=== PATIENT | male | born 1950 | race American Indian/Alaskan Native ===

== ENCOUNTER 2016-04-10 12:40 | Outpatient (CLI) | payer MEDICARE ==
--- NOTE | 2016-04-11 08:55 | Ultrasound Report ---
ULTRASOUND ABDOMEN LIMITED INDICATION: Nausea, abdominal pain. COMPARISON: 03/22/2013 ultrasound and 09/24/2013 CT. FINDINGS: Right upper quadrant sonography demonstrates diffusely echogenic liver with grossly preserved contours. No definite focal suspicious lesions or biliary dilatation. No gallstones or pericholecystic fluid. Gallbladder wall thickness is 1.9 mm. Common bile duct is 3.5 mm. Pancreas not well-visualized, obscured due to bowel gas. Nonaneurysmal abdominal aorta, IVC and the right kidney appear within normal limits. CONCLUSION: No acute right upper quadrant sonographic abnormality, though liver again moderately echogenic sonographically without definite prior CT confirmation of fatty infiltration. Please also correlate clinically. Thank you for the opportunity to participate in this patient's care.
== END 2016-04-10 12:41 | disposition home or self-care (01) ==
LOC: US 12:40
PROVIDERS: ATTEND Internal Medicine Hematology & Oncology
DX: R10.9 Unspecified abdominal pain (principal); R11.0 Nausea
CPT/HCPCS: 76705

== ENCOUNTER 2016-05-06 16:30 | Observation (INO) | payer MEDICARE ==
--- NOTE | 2016-05-06 17:01 | Emergency Department Report ---
Chief Complaint: Chest Pain Stated Complaint: CHEST PAIN Time Seen by Provider: 05/06/16 16:59 - HPI History of Present Illness: 65 y/o male complain of chest pain intermittent x 4 days .pt complain of n/v .pt denies any shortness of breath at present. - Exam Vital Signs: Vital Signs 05/06/16 16:38 Temperature 98.1 F Pulse Rate 106 H Respiratory 19 Rate Blood Pressure 143/88 O2 Sat by Pulse 99 Oximetry Physical Exam: GENERAL: The patient is well-developed and well-nourished. Patient is in NAD. HENT: Normocephalic. Atraumatic. Patient has moist mucous membranes. Throat: No erythema, swelling or exudates. Ears:Tympanic membranes pearly yu ,intact , and free of exudate and erythema . EYES: Extraocular motions are intact, PERRL NECK: Supple. No meningitic signs are noted. There is no adenopathy noted. CHEST/LUNGS: Clear to auscultation bilaterally. No wheezing, rales or rhonchi noted. There is no respiratory distress noted. HEART/CARDIOVASCULAR: Regular rate and rhythm. Normal S1 S2. No murmurs, rubs , clicks, or gallops. ABDOMEN: Abdomen is soft, nontender.. Bowel sounds normoactive. There is no abdominal distention. Negative rebound tenderness. : Deferred. SKIN: There is no rash. There is no edema. There is no diaphoresis.Normal skin turgor NEURO: The patient is A&Ox3. The patient has no focal neurologic deficits. MUSCULOSKELETAL: There is no tenderness or deformity. There is no limitation range of motion. posture erect.Spine aligned,no deformities. PSYCH: Pt has appropriate mood and affect. MSE screening note: Focused history and physical exam performed. Due to findings the following was ordered: ED Disposition for MSE Condition: Stable
[2016-05-06 17:22] LABS: Basophils % (Auto) 0.6 % (0.0-1.8); Eosinophils % (Auto) 1.1 % (0.0-4.3); Hematocrit 45.2 % (35.5-45.6); Hemoglobin 14.8 gm/dl (11.8-15.2); Mean Corpuscular HGB Conc 33 % (32-34); Mean Corpuscular Hemoglobin 30 pg (28-32); Mean Corpuscular Volume 90 fl (84-94); Platelet Count 147 K/mm3 (140-440); Red Blood Count 5.01 M/mm3 (3.65-5.03); Red Cell Distribution Width 13.8 % (13.2-15.2); White Blood Count 6.1 K/mm3 (4.5-11.0)
[2016-05-06 17:43] LABS: Creatine Kinase MB 2.7 ng/mL (0.0-4.0)
[2016-05-06 17:44] LABS: INR 2.35 (0.87-1.13)
[2016-05-06 17:45] LABS: Partial Thromboplastin Time 35.5 Sec. (24.2-36.6)
[2016-05-06 17:46] LABS: Alanine Aminotransferase 17 units/L (7-56); Albumin 4.8 g/dL (3.9-5); Albumin/Globulin Ratio 1.5 %; Alkaline Phosphatase 78 units/L (35-129); Anion Gap 18 mmol/L; BUN/Creatinine Ratio 13.75; Bilirubin,Total 0.7 mg/dL (0.1-1.2); Blood Urea Nitrogen 11 mg/dL (9-20); Calcium 9.4 mg/dL (8.4-10.2); Carbon Dioxide 28 mmol/L (22-30); Chloride 98.1 mmol/L (98-107); Glucose 207 mg/dL (75-100); Potassium 4.5 mmol/L (3.6-5.0); Sodium 140 mmol/L (137-145); Total Protein 7.9 g/dL (6.3-8.2)
--- NOTE | 2016-05-06 23:43 | Emergency Department Report ---
ED Chest Pain HPI - General Chief Complaint: Chest Pain Stated Complaint: CHEST PAIN Time Seen by Provider: 05/06/16 23:16 Source: patient Mode of arrival: Ambulatory Limitations: No Limitations - History of Present Illness Initial Comments: This is a 65-year-old -[place] male who presents to the emergency department from home with complaint of left-sided chest pain that's been going on for the last 4-5 days intermittently. He says that it got to its worst point last night when it was 10 out of 10 in intensity and the patient could not get any sleep. It is now 5 out of 10 and improving without any intervention. Patient is also been dealing with nausea and vomiting since this began and has vomited 3 times today. He denies any shortness of breath, fever, back pain but does complain of occasional diaphoresis. No recent travel or sick contacts at home. Patient has a past medical history of lymphoma that is in remission, PE/DVT, pun-osmvkda-hsvunnvlh diabetes, GERD, hypertension and high cholesterol. Patient is currently on Coumadin and has been compliant with it. His primary care doctor is Dr. Espana. 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 He last had a stress test about 10-12 years ago. He denies tobacco abuse any illicit drug use or abuse. Severity scale (0 -10): 6 - Related Data Home Medications Medication Instructions Recorded Confirmed Last Taken Clonidine HCl 0.2 mg PO BID 03/22/13 01/23/16 01/23/16 Gabapentin 300 mg PO BID 03/22/13 01/23/16 01/23/16 Lisinopril 20 mg PO QDAY 03/22/13 01/23/16 01/23/16 Metformin HCl 500 mg PO BID 03/22/13 01/23/16 01/23/16 Simvastatin 40 mg PO QDAY 03/22/13 01/23/16 01/22/16 Warfarin Sodium [Warfarin Sodium] 5 mg PO QDAY 01/23/16 01/23/16 01/22/16 Allergies Allergy/AdvReac Type Severity Reaction Status Date / Time codeine Allergy hallucinati Verified 05/06/16 16:50 ons oxycodone Allergy hallucinati Verified 05/06/16 16:50 ons ZEE score - Zee Score Age > 65: (0) No Aspirin use within the Past 7 Days: (0) No 3 or more CAD Risk Factors: (1) Yes 2 or more Angina events in past 24 hrs: (1) Yes Known CAD with more than 50% Stenosis: (0) No Elevated Cardiac Markers: (0) No ST Deviation Greater than 0.5mm: (0) No ZEE Score: 2 ED Review of Systems ROS: Stated complaint: CHEST PAIN Other details as noted in HPI Comment: All other systems reviewed and negative Constitutional: diaphoresis. denies: chills, fever Eyes: denies: eye pain, eye discharge, vision change ENT: denies: ear pain, throat pain Respiratory: denies: cough, shortness of breath, wheezing Cardiovascular: chest pain. denies: palpitations Gastrointestinal: abdominal pain, nausea, vomiting Genitourinary: denies: urgency, dysuria Musculoskeletal: denies: back pain, joint swelling, arthralgia Skin: denies: rash, lesions Neurological: denies: headache, weakness, paresthesias ED Past Medical Hx - Past Medical History Hx Hypertension: Yes Hx Congestive Heart Failure: No Hx Diabetes: Yes Hx Deep Vein Thrombosis: Yes Hx Pulmonary Embolism: Yes (2011) Hx GERD: Yes Hx of Cancer: Yes Hx Arthritis: Yes Hx Asthma: No Hx COPD: No Hx HIV: No Additional medical history: Lymphoma, high cholesterol,. neuropathy - Surgical History Additional Surgical History: prostate - Social History Smoking Status: Former Smoker Substance Use Type: None - Medications Home Medications: Home Medications Medication Instructions Recorded Confirmed Last Taken Type Clonidine HCl 0.2 mg PO BID 03/22/13 01/23/16 01/23/16 History Gabapentin 300 mg PO BID 03/22/13 01/23/16 01/23/16 History Lisinopril 20 mg PO QDAY 03/22/13 01/23/16 01/23/16 History Metformin HCl 500 mg PO BID 03/22/13 01/23/16 01/23/16 History Simvastatin 40 mg PO QDAY 03/22/13 01/23/16 01/22/16 History Warfarin Sodium [Warfarin Sodium] 5 mg PO QDAY 01/23/16 01/23/16 01/22/16 History ED Physical Exam - General Limitations: No Limitations - Other Other exam information: GENERAL: The patient is well-developed well-nourished. HEENT: Normocephalic. Atraumatic. Extraocular motions are intact. Patient has moist mucous membranes. Pupils equal reactive to light bilaterally. NECK: Supple. Trachea is midline. CHEST/LUNGS: Clear to auscultation. There is no respiratory distress noted. Chest pain is not reproducible to palpation the chest wall. HEART/CARDIOVASCULAR: Regular. There is no tachycardia. There is no gallop rub or murmur. ABDOMEN: Abdomen is soft, nontender. Patient has normal bowel sounds. There is no abdominal distention. SKIN: There is no rash. There is no diaphoresis. NEURO: The patient is awake, alert, and oriented. The patient is cooperative. The patient has no focal neurologic deficits. The patient has normal speech. MUSCULOSKELETAL: There is no tenderness or deformity. There is no limitation range of motion. There is no evidence of acute injury. ED Course Vital Signs 05/06/16 05/06/16 05/06/16 16:38 23:03 23:40 Temperature 98.1 F 98.2 F Pulse Rate 106 H 87 91 H Respiratory 19 18 21 Rate Blood Pressure 143/88 148/92 Blood Pressure 136/77 [Left] O2 Sat by Pulse 99 100 100 Oximetry 05/06/16 23:44 Temperature Pulse Rate Respiratory 21 Rate Blood Pressure Blood Pressure [Left] O2 Sat by Pulse 100 Oximetry ED Medical Decision Making - Lab Data Result diagrams: 05/06/16 17:06 05/06/16 17:06 - EKG Data -: EKG Interpreted by Me EKG shows normal: sinus rhythm, axis, intervals, QRS complexes, ST-T waves Rate: tachycardia (101 bpm) - EKG Data When compared to previous EKG there are: previous EKG unavailable Interpretation: nonspecific ST-T wave rickey - Radiology Data Radiology results: image reviewed interpreted by me: Chest x-ray did not show any acute process. Heart is normal shape and size. No effusions. No pneumothorax. No signs of pneumonia seen. X-ray of the abdomen does not show any acute process. Nonobstructive nonspecific bowel gas and some stool seen. - Medical Decision Making 65-year-old male presents with a 45 day history of left-sided chest pain, nausea , vomiting or diaphoresis. No shortness of breath. Patient has multiple risk factors including diabetes, hypertension. Patient has not had a stress test in 10-12 years. Patient has a history of lymphoma but is in remission. Not only is he is not complaining of dyspnea but he is also therapeutic on his Coumadin. EKG does not show any signs of ST elevation MA or dysrhythmia at this time. Chest x-ray does not show any acute process. Vital signs stable throughout his ED course. Patient will be admitted to hospital for further evaluation and possible stress test. He has been accepted for admission by the hospitalist, Dr. Topete. - Differential Diagnosis MA, pneumonia, CHF, muscle strain, costochondritis Critical Care Time: No Critical care attestation.: If time is entered above; I have spent that time in minutes in the direct care of this critically ill patient, excluding procedure time. ED Disposition Clinical Impression: History of lymphoma Chest pain Qualifiers: Chest pain type: unspecified Qualified Code(s): R07.9 - Chest pain, unspecified Nausea and vomiting Qualifiers: Vomiting type: unspecified Vomiting Intractability: non-intractable Qualified Code(s): R11.2 - Nausea with vomiting, unspecified Disposition: OP ADMITTED IP TO THIS HOSP Is pt being admited?: Yes Does the pt Need Aspirin: Yes Condition: Stable Instructions: Chest Pain (ED) Time of Disposition: 00:37
[2016-05-06] MEDS ORDERED: NACL 0.9% 1000 ML 1,000 ML IV ONE (23:55)
[2016-05-06] MEDS ORDERED: ZOFRAN IV ONE (23:55)
[2016-05-06] MEDS ORDERED: PEPCID IV ONE (23:56)
[2016-05-07] MEDS ORDERED: BABY ASPIRIN PO ONE (00:37)
--- NOTE | 2016-05-07 02:15 | History and Physical Report ---
History of Present Illness Date of examination: 05/07/16 History of present illness: 65-year-old man with a history of hypertension, diabetes, GERD, lymphoma comes emergency room with complaints of chest pain. Pain is in the left substernal area described as a heavy sensation, started last night, constant, intensity 3/ 10, no radiation, relief with IV pain medication in the emergency room. He admits to nausea vomiting, no shortness breath diaphoresis or palpitation Patient denies cough, abdominal pain, hematochezia, dysuria, frequency, focal weakness, dysarthria, fever chills, polydipsia polyuria, hot or cold intolerance , easy bruisability, or rash or bleeding from mucosal membrane, rhinorrhea, epistaxis, earache, tinnitus, blurry vision, eye discharge, anxiety, depression. Other review of systems negative PAST SURGICAL HISTORY: Prostatectomy SOCIAL HISTORY: Denies alcohol, tobacco, drugs FAMILY HISTORY: Retention Medications and Allergies Allergies Allergy/AdvReac Type Severity Reaction Status Date / Time codeine Allergy hallucinati Verified 05/06/16 16:50 ons oxycodone Allergy hallucinati Verified 05/06/16 16:50 ons Home Medications Medication Instructions Recorded Confirmed Last Taken Type Clonidine HCl 0.2 mg PO BID 03/22/13 05/07/16 1 Day Ago History 0.2 Gabapentin 300 mg PO BID 03/22/13 05/07/16 1 Day Ago History 300 Lisinopril 40 mg PO QDAY 03/22/13 05/07/16 1 Day Ago History 40 Metformin HCl 500 mg PO BID 03/22/13 05/07/16 1 Day Ago History 500 Simvastatin 40 mg PO QDAY 03/22/13 05/07/16 1 Day Ago History 40 Warfarin Sodium [Warfarin Sodium] 5 mg PO QDAY 01/23/16 05/07/16 1 Day Ago History 5 amLODIPine [Norvasc] 10 mg PO DAILY 05/07/16 05/07/16 1 Day Ago History 10 traMADol ER 100 MG 50 mg PO TID 05/07/16 05/07/16 1 Day Ago History 50 Exam - Physical Exam Narrative exam: Gen. appearance: Patient lying in bed, no apparent distress HEENT: Normocephalic, atraumatic, pupils equally round and reactive to light, extraocular movement intact, and no sclericterus,. No JVD or thyromegaly or nodule,neck supple, no carotid bruit ,mucous membranes moist, no exudate or erythema Heart: S1, S2, regular rate and rhythm Lungs: Clear to auscultation bilaterally, breathing comfortable Abdomen: Positive bowel sounds, nontender, nondistended, no organomegaly Extremity: No edema, cyanosis, clubbing Skin: No rash, nodules, warm, dry Neuro: Oriented 3, cranial nerves II-12 intact, speech is fluent, motor and sensory intact - Constitutional Vitals: Temp Pulse Resp BP Pulse Ox 98.2 F 76 18 143/79 100 05/06/16 23:03 05/07/16 01:09 05/07/16 01:09 05/07/16 01:09 05/07/16 01:09 Results - Labs CBC & Chem 7: 05/06/16 17:06 05/06/16 17:06 Labs: Abnormal lab results 05/06/16 05/06/16 Range/Units 17:06 17:06 PT 25.8 H (12.2-14.9) Sec. INR 2.35 H (0.87-1.13) Glucose 207 H (75-100) mg/dL - Imaging and Cardiology EKG: image reviewed Chest x-ray: image reviewed Assessment and Plan Chest pain, rule out ACS Hypertension Diabetes History of PE Admits medicine Check cardiac enzymes, lipid profile and obtain a stress test Continue appropriate outpatient medications DVT prophylaxis with Coumadin
[2016-05-07] MEDS ORDERED: D50W (25GM) IV PRN (05:39)
[2016-05-07] MEDS ORDERED: ZOFRAN IV PRN (05:39)
[2016-05-07] MEDS ORDERED: DULCOLAX PR PRN (05:39)
[2016-05-07] MEDS ORDERED: MILK OF MAGNESIA PO PRN (05:39)
[2016-05-07] MEDS ORDERED: SODIUM CHLORIDE FLUSH SYRINGE 10 ML IV PRN (05:39)
[2016-05-07] MEDS ORDERED: TYLENOL PO PRN (05:39)
[2016-05-07] MEDS ORDERED: MORPHINE IV PRN (05:39)
[2016-05-07] MEDS ORDERED: NOVOLOG SUB-Q SCH (07:30)
[2016-05-07 08:16] LABS: Creatine Kinase MB 2.8 ng/mL (0.0-4.0)
[2016-05-07] MEDS ORDERED: COUMADIN PO SCH ×2 (10:00→17:00)
[2016-05-07] MEDS ORDERED: ZOCOR PO SCH (10:00)
[2016-05-07] MEDS ORDERED: CATAPRES PO SCH (10:00)
[2016-05-07] MEDS ORDERED: ZESTRIL PO SCH (10:00)
[2016-05-07] MEDS ORDERED: NEURONTIN PO SCH (10:00)
--- NOTE | 2016-05-07 10:55 | Discharge Summary ---
Providers - Providers Date of Admission: 05/07/16 02:11 Date of discharge: 05/07/16 Attending physician: DARÍO OSEI MD Primary care physician: [facility] Hospitalization Reason for admission: chest pain Condition: Stable Hospital course: 65-year-old man with a history of hypertension, diabetes, GERD, lymphoma comes emergency room with complaints of chest pain. Pain is in the left substernal area described as a heavy sensation, started last night, constant, intensity 3/ 10, no radiation, relief with IV pain medication in the emergency room. He admits to nausea vomiting, no shortness breath diaphoresis or palpitation Patient denies cough, abdominal pain, hematochezia, dysuria, frequency, focal weakness, dysarthria, fever chills, polydipsia polyuria, hot or cold intolerance , easy bruisability, or rash or bleeding from mucosal membrane, rhinorrhea, epistaxis, earache, tinnitus, blurry vision, eye discharge, anxiety, depression. Other review of systems negative. Patient admission did present for stress test which was negative. On reevaluation the chest pain was reproducible. He stated that he has significantly improved at this time. He is stable for discharge Discharge diagnosis Chest pain secondary to costochondritis Lymphoma Hypertension Diabetes History of PE Disposition: DISCHARGED TO HOME OR SELFCARE Time spent for discharge: 35 mins Core Measure Documentation - Palliative Care Palliative Care/ Comfort Measures: Not Applicable - Core Measures Any of the following diagnoses?: none - VTE Discharge Requirements Deep Vein Thrombosis/Pulmonary Embolism Present on Admission: No Exam - Physical Exam Narrative exam: VITAL SIGNS: Reviewed. GENERAL: The patient appeared well nourished and normally developed. Vital signs as documented. HEAD: No signs of head trauma. EYES: Pupils are equal. Extraocular motions intact. EARS: Hearing grossly intact. MOUTH: Oropharynx is normal. NECK: No adenopathy, no JVD. CHEST: Chest with clear breath sounds bilaterally. No wheezes, rales, or rhonchi. CARDIAC: Regular rate and rhythm. S1 and S2, without murmurs, gallops, or rubs. VASCULAR: No Edema. Peripheral pulses normal and equal in all extremities. ABDOMEN: Soft, without detectable tenderness. No sign of distention. No rebound or guarding, and no masses palpated. Bowel Sounds normal. MUSCULOSKELETAL: Good range of motion of all major joints. Extremities without clubbing, cyanosis or edema. NEUROLOGIC EXAM: Alert and oriented x 3. No focal sensory or strength deficits. Speech normal. Follows commands. PSYCHIATRIC: Mood normal. SKIN: No rash or lesions. - Constitutional Vitals: Temp Pulse Resp BP Pulse Ox 98.3 F 77 20 148/82 100 05/07/16 07:30 05/07/16 07:30 05/07/16 07:30 05/07/16 07:30 05/07/16 07:30 Plan Activity: advance as tolerated, fall precautions Diet: low cholesterol, diabetic Special Instructions: record daily BP diary Follow up with: PRIMARY CARE, [Primary Care Provider] - 3-5 Days Forms: Warfarin Discharge Instruction
--- NOTE | 2016-05-07 11:03 | XRay Report ---
ABDOMEN, TWO VIEWS HISTORY: Abdominal pain. FINDINGS: Only a single AP portable supine view of the abdomen is presented. The bowel gas pattern is within normal limits. There is normal stool in the colon. No pathologic calcifications or bowel obstruction is appreciated. The lung bases are not included. IMPRESSION: Unremarkable abdomen.
--- NOTE | 2016-05-07 11:07 | XRay Report ---
Portable chest: There is a right jugular [id number] with the tip in the mid SVC. The mediastinal contour is unremarkable. The lungs are clear. The findings are unchanged compared to prior study of February 01, 2014. Impression: No acute or cardiopulmonary pathology identified.
--- NOTE | 2016-05-07 11:50 | Treadmill Report ---
The patient exercised for 8 minutes of a Johan protocol, reaching stage 3 and achieving 9 mets. Peak heart rate was 194 beats per minute. Peak blood pressure was 178 systolic. There was no chest pain. Test was stopped for fatigue. Baseline ECG was normal sinus rhythm. With exercise, there were no ST changes of ischemia. No significant dysrhythmias were noted. CONCLUSION: 1. Good exercise capacity. 2. No chest pain. 3. No ST changes of ischemia. 4. No significant dysrhythmias. This is a normal exercise ECG test. JOB# [id number] CA/NTS
[2016-05-07 13:10] LABS: Creatine Kinase MB 2.5 ng/mL (0.0-4.0)
--- NOTE | 2016-05-07 13:13 | Admit Criteria Form ---
Admission Criteria Documentation: CHEST PAIN Clinical Indications for Admission to Inpatient Care (Place 'X' for any and all applicable criteria): Admission is indicated for chest pain and ANY ONE of the following(1)(2)(3)(4)(5 ): [ ]I. Angina with acute coronary syndrome (Also use Myocardial Infarction or Angina guideline) [ ]II. Hemodynamic instability [X ]III. Angina needing acute intervention as indicated by ALL of the following (11)(12): [X ]a) Unstable angina is present as indicated by angina that is ANY ONE of the following: [ ]i) New onset [ ]ii) Nocturnal [ ]iii) Prolonged at rest [X ]iv) Progressive [ X]b) Angina warrants acute intervention as indicated by ANY ONE of the following: [ ]i) Recurrent angina (e.g, not responding as previously to treatment) [ ]ii) Angina at rest or with low-level activities despite initial medical therapy [ ]iii) New or presumably new ST-segment depression on ECG [ ]iv) Signs or symptoms of heart failure (eg, dyspnea, pulmonary edema) [ ]v) New or worsening mitral regurgitation [ ]vi) Hemodynamic instability [ ]vii) Dangerous arrhythmia (eg, sustained ventricular tachycardia) [ ]viii) History of percutaneous coronary intervention within 6 months [ ]ix) History of coronary artery bypass graft surgery [X ]x) ZEE risk score of 2 or greater[A] [ ]xi) History of Diabetes(14) [ ]xii) High-risk cardiac ischemia findings on noninvasive testing (e.g, echocardiogram, treadmill testing, nuclear scan) [ ]xiii) Chronic renal insufficiency (ie, estimated GFR less than 60 mL/min/1.732m) [ ]xiv) Left ventricular ejection fraction less than 40% [ ]IV. Evidence of [place] (eg, cardiac biomarkers positive, ST-segment elevation on ECG) also use Myocardial Infarction Criteria Form. [ ]V. Pulmonary edema [ ]. Respiratory distress [ ]VII. Chest pain indicative of serious diagnosis other than coronary artery disease (eg, aortic dissection) [ ]VIII. Contraindications and/or Inappropriate clinical situations for Observational Care in patients with Chest Pain, when ANY ONE of the following is required: [ ]a) Patient with risk factor for pulmonary embolism, acute coronary syndrome and myocardial infarction (18) [ ]b) Patient with Pulmonary embolism require an average LOS of 4.3 days, therefore emergency department observation management is inappropriate 18,23 [ ]c) Painful condition/s in the elderly, have the highest rate of recidivism after emergency department observation management (10.8%) 20,21,22 [ ]d) Elevated cardiac biomarker requires intensive and exhaustive care (19) [ ]IX. General contraindications and/or Inappropriate clinical situations for Observational Care in patients with Chest Pain, when ANY ONE of the following is required: [ ]a) Prediction of prolongation of LOS based on ANY ONE of the following may be considered as a contraindication for observational care 2, 3, 4, 5, 6, 7, 8, 9, 10, 11 [ ]i) Age > 65 yrs. [ ]ii) Patient arriving by ambulance [ ]iii) Patient with high acuity [ ]iv) Patient requiring vital sign monitoring [ ]v) Patient on IV medication [ ]b) Systolic blood pressures 180mmHg 3,12 [ ]c) Patient with altered mental status including delirium and other alteration of consciousness, (3) [ ]d) Patient whose discharge disposition will be to a usp home or rehabilitation home should not be managed in Emergency Department Observation Unit. CMS rule requires 3 days hospital stay before such placement. 3,13 [ ]e) Patient with failure to thrive due to broad array of etiologies 3,16,17 [ ]f) Inability to ambulate 3,14 Extended stay beyond goal length of stay may be needed for (1)(28): [ ]a) Specific condition diagnosed after evaluation (eg, pulmonary embolism, aortic dissection) [ ]b) Unstable angina [ ]c) Continued suspicion of acute coronary syndrome with inability to complete needed cardiac evaluation (eg, patient clinically unable to undergo stress testing) [ ]d) Myocardial infarction (Contents from ANGINA and CHEST PAIN clinical indications for admission to inpatient care have been integrated in this form) The original [employer] content created by [employer] has been revised. The portions of the content which have been revised are identified through the use of italic text or in bold, and [email or web address] has neither reviewed nor approved the modified material. All other unmodified content is copyright [employer]. Please see references footnoted in the original [employer] edition 2016 Admission Criteria Met: Yes
[2016-05-07 13:39] VITALS: BP 121/73
== END 2016-05-07 14:16 | disposition home or self-care (01) ==
LOC: ED 16:30 → 4A 05-07 02:11
PROVIDERS: ADMIT Internal Medicine; ATTEND Internal Medicine
DX: R07.9 Chest pain, unspecified (principal); I10 Essential (primary) hypertension; E11.9 Type 2 diabetes mellitus without complications; K21.9 Gastro-esophageal reflux disease without esophagitis; C85.90 Non-Hodgkin lymphoma, unspecified, unspecified site; R11.2 Nausea with vomiting, unspecified; M94.0 Chondrocostal junction syndrome [Tietze]; Z86.711 Personal history of pulmonary embolism; Z85.9 Personal history of malignant neoplasm, unspecified; Z90.79 Acquired absence of other genital organ(s); Z87.891 Personal history of nicotine dependence
CPT/HCPCS: 36415; 71010; 74000; 80053; 80061; 82150; 82550; 82553; 82962; 83690; 84484; 85025; 85610; 85730; 93005; 93010; 93017; 96361; 96374; 96375; 99285; G0378; J2405; J7030; 74020

== ENCOUNTER 2016-05-22 09:49 | Outpatient (CLI) | payer MEDICARE ==
[2016-05-22] MEDS ORDERED: FLUSH HEPARIN IV ONE (10:45)
== END 2016-05-22 10:44 | disposition home or self-care (01) ==
LOC: FLUORO 09:49 → OPU 09:49
PROVIDERS: ATTEND Internal Medicine Hematology & Oncology
DX: Z45.2 Encounter for adjustment and management of vascular access device (principal)
CPT/HCPCS: 96523; J1642

== ENCOUNTER 2017-01-24 10:37 | Outpatient (CLI) | payer MEDICARE ==
--- NOTE | 2017-01-26 11:02 | PET Report ---
PET/CT:01/24/17 10:37:00 CLINICAL: Lymphoma restaging. RADIOPHARMACEUTICAL: 12.655mCi F18-FDG. COMPARISON: 09/16/14 PET/CT TECHNIQUE- Following intravenous injection of F-18 FDG and an approximately 60 minute uptake period, CT and PET images from the mid skull to the upper thighs were acquired with the patient in the fasted state. No contrast was administered. The CT protocol used for this PET CT study is designed for attenuation correction and anatomic localization of PET abnormalities. This noc analyst CT is not desired to produce and cannot replace, tnjhv-[id number] diagnostic CT scans with specific imaging protocols for different body parts and indications. Plasma glucose at the time of this test: 168g/dl. The standardized uptake values (SUV) are normalized to patient body weight and indicate the highest activity concentration (SUV max) in a given disease site. FINDINGS: Brain--Physiologic FDG uptake in the visualized regions of the brain. Neck--Physiologic FDG uptake . Chest--Physiologic FDG uptake in mediastinal blood pool and myocardium. Lungs--No abnormal uptake. No pulmonary nodule or mass. Pleura/pericardium--No abnormal uptake. Thoracic nodes--No abnormal uptake. Numerous small non-FDG avid anterior mediastinal lymph nodes as seen on the prior exam. SUV = 2.2 which is equal to background. The largest measures 1.5 x 1.6 cm compared to 1.3 x 1.3 cm on the last exam. Hepatobiliary--No abnormal uptake. Liver background SUV mean, as a reference for comparing FDG studies, is 4.1 compared to 3.7 on the last exam. No liver mass. Spleen--No abnormal uptake. Spleen is small. Pancreas--No abnormal uptake. Adrenal Glands--No abnormal uptake. Kidneys/Ureters/Bladder--No abnormal uptake. Abdominopelvic Nodes--No abnormal uptake. Bowel/Peritoneum/Mesentery--No abnormal uptake. Pelvic organs--No abnormal uptake. Bones/Soft Tissues--No abnormal uptake. Other findings: A right [id number] tip is in the SVC. IMPRESSION- Negative study with stable non-FDG avid mediastinal lymph nodes. No new findings.
== END 2017-01-24 10:38 | disposition home or self-care (01) ==
LOC: PET 10:37
PROVIDERS: ATTEND Internal Medicine Hematology & Oncology
DX: C85.90 Non-Hodgkin lymphoma, unspecified, unspecified site (principal); Z79.899 Other long term (current) drug therapy
CPT/HCPCS: 78815; 82962; A9552

== ENCOUNTER 2017-08-31 19:51 | Emergency (ER) | payer MEDICARE ==
[2017-08-31 21:45] LABS: Basophils % (Auto) 0.4 % (0.0-1.8); Eosinophils # (Auto) 0.1 K/mm3 (0.0-0.4); Eosinophils % (Auto) 1.7 % (0.0-4.3); Hematocrit 40.6 % (35.5-45.6); Hemoglobin 13.6 gm/dl (11.8-15.2); Lymphocytes # (Auto) 1.8 K/mm3 (1.2-5.4); Lymphocytes % (Auto) 24.4 % (13.4-35.0); Mean Corpuscular HGB Conc 33 % (32-34); Mean Corpuscular Hemoglobin 30 pg (28-32); Mean Corpuscular Volume 89 fl (84-94); Monocytes # (Auto) 0.5 K/mm3 (0.0-0.8); Monocytes % (Auto) 7.1 % (0.0-7.3); Platelet Count 140 K/mm3 (140-440); Red Blood Count 4.57 M/mm3 (3.65-5.03); Red Cell Distribution Width 14.3 % (13.2-15.2)
[2017-08-31 21:50] LABS: Alanine Aminotransferase 11 units/L (7-56); Albumin 4.4 g/dL (3.9-5); BUN/Creatinine Ratio 14; Blood Urea Nitrogen 13 mg/dL (9-20); Calcium 9.3 mg/dL (8.4-10.2); Hemolysis Index 3
[2017-08-31 21:57] LABS: Bilirubin,Urine NEG (Negative); Blood,Urine LG (Negative); Color,Urine Yellow (Yellow); Mucus,Urine FEW /HPF; Urobilinogen,Urine < 2.0 mg/dL (<2.0)
[2017-08-31 22:03] LABS: RBC,Urine > 182.0 /HPF (0.0-6.0); WBC,Urine > 182.0 /HPF (0.0-6.0)
[2017-09-01] MEDS ORDERED: ZOFRAN IV ONE (01:53)
[2017-09-01] MEDS ORDERED: MORPHINE IV ONE (01:53)
[2017-09-01] MEDS ORDERED: NACL 0.9% 1000 ML 1,000 ML IV ONE (01:53)
--- NOTE | 2017-09-01 02:54 | Emergency Department Report ---
ED General Adult HPI - General Chief complaint: Urogenital-Male Stated complaint: BLOOD IN URINE,LEFT SIDE PAIN Time Seen by Provider: 09/01/17 01:54 Source: patient Mode of arrival: Ambulatory Limitations: No Limitations - History of Present Illness Initial comments: Chronically on blood tender Coumadin for PE here for evaluation of hematuria with history of prostate CA and lymphoma complaining of left sided flank pain into the groin -: Gradual, days(s) Location: back, abdomen, pelvis Severity scale (0 -10): 8 Quality: burning, aching Consistency: intermittent Worsens with: none Associated Symptoms: denies other symptoms. denies: chest pain, cough, diaphoresis, fever/chills, headaches, loss of appetite, malaise, nausea/vomiting , rash, seizure, shortness of breath, syncope, weakness - Related Data Home Medications Medication Instructions Recorded Confirmed Last Taken Clonidine HCl 0.2 mg PO BID 03/22/13 05/07/16 1 Day Ago ~05/06/16 0.2 Gabapentin 300 mg PO BID 03/22/13 05/07/16 1 Day Ago ~05/06/16 300 Lisinopril 40 mg PO QDAY 03/22/13 05/07/16 1 Day Ago ~05/06/16 40 Metformin HCl 500 mg PO BID 03/22/13 05/07/16 1 Day Ago ~05/06/16 500 Simvastatin 40 mg PO QDAY 03/22/13 05/07/16 1 Day Ago ~05/06/16 40 Warfarin Sodium 5 mg PO QDAY 01/23/16 05/07/16 1 Day Ago ~05/06/16 5 amLODIPine [Norvasc] 10 mg PO DAILY 05/07/16 05/07/16 1 Day Ago ~05/06/16 10 traMADol ER 100 MG 50 mg PO TID 05/07/16 05/07/16 1 Day Ago ~05/06/16 50 Previous Rx's Medication Instructions Recorded Last Taken Type Ciprofloxacin HCl [Cipro] 500 mg PO BID #28 tablet 09/01/17 Unknown Rx Allergies Allergy/AdvReac Type Severity Reaction Status Date / Time codeine Allergy hallucinati Verified 05/06/16 16:50 ons oxycodone Allergy hallucinati Verified 05/06/16 16:50 ons ED Review of Systems ROS: Stated complaint: BLOOD IN URINE,LEFT SIDE PAIN Other details as noted in HPI Comment: All other systems reviewed and negative Constitutional: denies: diaphoresis, fever, malaise Eyes: denies: eye discharge, vision change ENT: denies: dental pain, hearing loss, epistaxis Respiratory: denies: orthopnea, shortness of breath, SOB with exertion, SOB at rest, stridor Cardiovascular: denies: chest pain, palpitations, dyspnea on exertion, orthopnea , edema, syncope, paroxysmal nocturnal dyspnea Endocrine: denies: excessive sweating Gastrointestinal: abdominal pain, nausea. denies: vomiting, diarrhea, constipation, hematemesis, melena, hematochezia Musculoskeletal: back pain Skin: denies: change in color, pruritus Neurological: denies: numbness, paresthesias, confusion Psychiatric: denies: auditory hallucinations, visual hallucinations, homicidal thoughts ED Past Medical Hx - Past Medical History Hx Hypertension: Yes Hx Congestive Heart Failure: No Hx Diabetes: Yes Hx Deep Vein Thrombosis: Yes Hx Pulmonary Embolism: Yes (2011) Hx GERD: Yes Hx Arthritis: Yes Hx Asthma: No Hx COPD: No Hx HIV: No Additional medical history: Lymphoma, high cholesterol,. neuropathy - Surgical History Past Surgical History?: Yes Additional Surgical History: prostate - Social History Smoking Status: Light Tobacco Smoker Substance Use Type: None - Medications Home Medications: Home Medications Medication Instructions Recorded Confirmed Last Taken Type Clonidine HCl 0.2 mg PO BID 03/22/13 05/07/16 1 Day Ago History ~05/06/16 0.2 Gabapentin 300 mg PO BID 03/22/13 05/07/16 1 Day Ago History ~05/06/16 300 Lisinopril 40 mg PO QDAY 03/22/13 05/07/16 1 Day Ago History ~05/06/16 40 Metformin HCl 500 mg PO BID 03/22/13 05/07/16 1 Day Ago History ~05/06/16 500 Simvastatin 40 mg PO QDAY 03/22/13 05/07/16 1 Day Ago History ~05/06/16 40 Warfarin Sodium 5 mg PO QDAY 01/23/16 05/07/16 1 Day Ago History ~05/06/16 5 amLODIPine [Norvasc] 10 mg PO DAILY 05/07/16 05/07/16 1 Day Ago History ~05/06/16 10 traMADol ER 100 MG 50 mg PO TID 05/07/16 05/07/16 1 Day Ago History ~05/06/16 50 Ciprofloxacin HCl [Cipro] 500 mg PO BID #28 tablet 09/01/17 Unknown Rx ED Physical Exam - General Limitations: No Limitations General appearance: alert, anxious - Head Head exam: Present: atraumatic, normocephalic - Eye Eye exam: Present: normal appearance, PERRL, EOMI - ENT ENT exam: Present: normal exam, normal orophraynx, mucous membranes dry, mucous membranes moist - Neck Neck exam: Present: normal inspection. Absent: meningismus - Respiratory Respiratory exam: Present: normal lung sounds bilaterally. Absent: respiratory distress, wheezes, rales, rhonchi, stridor - Cardiovascular Cardiovascular Exam: Present: regular rate, normal rhythm - GI/Abdominal GI/Abdominal exam: Present: soft. Absent: distended, tenderness, guarding, rebound, rigid, organomegaly, mass, pulsatile mass - exam: Present: normal inspection - Extremities Exam Extremities exam: Present: normal inspection, normal capillary refill. Absent: pedal edema, joint swelling, calf tenderness - Back Exam Back exam: Present: normal inspection. Absent: CVA tenderness (R), CVA tenderness (L) - Neurological Exam Neurological exam: Present: alert, oriented X3, CN II-XII intact. Absent: motor sensory deficit - Skin Skin exam: Absent: cyanosis, diaphoretic, erythema, urticaria, vesicles, petechiae ED Course Vital Signs 08/31/17 08/31/17 09/01/17 19:52 20:12 01:49 Temperature 98.0 F 98.3 F Pulse Rate 105 H 105 H Respiratory 18 20 18 Rate Blood Pressure 126/80 128/80 Blood Pressure 128/80 [Left] O2 Sat by Pulse 99 99 Oximetry 09/01/17 02:26 Temperature 98.4 F Pulse Rate 88 Respiratory 20 Rate Blood Pressure Blood Pressure 151/93 [Left] O2 Sat by Pulse 99 Oximetry ED Medical Decision Making - Lab Data Result diagrams: 08/31/17 21:16 08/31/17 21:16 - Radiology Data Radiology results: report reviewed - Medical Decision Making CT was read as no acute process per radiologist patient does have evidence of UTI on lab tests urine C&S is pending antibiotics were given now he will be discharged in stable condition for outpatient follow-up with urology Critical care attestation.: If time is entered above; I have spent that time in minutes in the direct care of this critically ill patient, excluding procedure time. ED Disposition Clinical Impression: UTI (urinary tract infection), Hematuria Disposition: TO HOME OR SELFCARE Is pt being admited?: No Condition: Stable Instructions: Urinary Tract Infection in Men (ED), Acute Hematuria (ED) Additional Instructions: See the doctor listed or your regular doctor, see a urologist return if new alarming symptoms or call 911 Prescriptions: Ciprofloxacin HCl [Cipro] 500 mg PO BID #28 tablet Referrals: GADIEL BARROSO DO [Primary Care Provider] - 3-5 Days Time of Disposition: 05:03
[2017-09-01 04:14] LABS: INR 1.9 (0.87-1.13)
[2017-09-01 04:15] LABS: Partial Thromboplastin Time 43.4 Sec. (24.2-36.6)
--- NOTE | 2017-09-01 04:50 | Cat Scan Report ---
FINAL REPORT EXAM: CT ABDOMEN PELVIS WO CON HISTORY: abd pain/left flank pain/hematuria TECHNIQUE: Routine axial imaging was obtained of the abdomen and pelvis without oral or IV contrast. Sagittal and coronal reconstructions were reviewed. FINDINGS: The lung bases are clear. Pleural fluid is not identified. The liver, gallbladder, pancreas, spleen, and adrenal glands appear normal. The kidneys show no evidence of stones or hydronephrosis. There calcification of the abdominal aorta. The bowel loops are normal in caliber and course. There are multiple uncomplicated diverticula in the descending and sigmoid colon. The appendix appears normal. There is no evidence of free fluid or adenopathy. In the pelvis the bladder appears normal. There is a penile prosthesis reservoir in the anterior aspect of the right side of the pelvic floor. The skeletal structures reveal mild arthritic changes in the lumbar spine. IMPRESSION: No acute process in the abdomen and pelvis. No evidence of renal stones or hydronephrosis. Uncomplicated descending and sigmoid diverticulosis.
[2017-09-01] MEDS ORDERED: ROCEPHIN IM ONE (04:51)
[2017-09-01] MEDS ORDERED: XYLOCAINE 1% MPF 5 mL INFILTRATI ONE (04:51)
[2017-09-01] MEDS ORDERED: cefTRIAXone 1 GM in NACL 0.9% 20 ML IV ONE (05:00)
[2017-09-01] MEDS ORDERED: ROCEPHIN/NS 1 GM/50 ML 1 GM/50 ML BAG IV ONE (05:01)
[2017-09-01] MEDS ORDERED: FLUSH HEPARIN IV ONE (05:04)
[2017-09-01 05:50] VITALS: BP 141/87
== END 2017-09-01 06:26 | disposition home or self-care (01) ==
LOC: ED 19:51
DX: N39.0 Urinary tract infection, site not specified (principal); R31.9 Hematuria, unspecified; I10 Essential (primary) hypertension; E11.9 Type 2 diabetes mellitus without complications; K21.9 Gastro-esophageal reflux disease without esophagitis; M19.90 Unspecified osteoarthritis, unspecified site; F17.200 Nicotine dependence, unspecified, uncomplicated; E78.00 Pure hypercholesterolemia, unspecified; Z86.718 Personal history of other venous thrombosis and embolism; Z86.711 Personal history of pulmonary embolism; Z88.5 Allergy status to narcotic agent
CPT/HCPCS: 36415; 74176; 80053; 81001; 85025; 85610; 85730; 87076; 87086; 87186; 96361; 96365; 96375; 99284; J0696; J1642; J2270; J2405; J7030

== ENCOUNTER 2019-07-08 08:49 | Outpatient (CLI) | payer MEDICARE ==
--- NOTE | 2019-07-08 09:54 | XRay Report ---
ABDOMEN 1 VIEW INDICATION: ABDOMINAL PAIN/N/V. COMPARISON: 05/06/2016 FINDINGS: Normal gas pattern with a large volume of stool throughout the colon and in the rectum. No distended bowel. No evidence of free air. No mass or suspicious calcifications. Mild degenerative change in the spine. IMPRESSION: 1. Negative abdomen with abundant stool.. Signer Name: Darrell Johnson MD Signed: 07/08/2019 9:49 AM Workstation Name: [id number]
== END 2019-07-08 08:50 | disposition home or self-care (01) ==
LOC: XRAY 08:49
PROVIDERS: ATTEND Internal Medicine Hematology & Oncology
DX: K56.41 Fecal impaction (principal); M47.816 Spondylosis without myelopathy or radiculopathy, lumbar region
CPT/HCPCS: 74018

== ENCOUNTER 2020-08-05 08:06 | Observation (INO) | payer MEDICARE, OTHER ==
--- NOTE | 2020-08-05 08:21 | Event Note ---
ED Screening Note Date of service: 08/05/20 Time: 08:19 ED Screening Note: 69-year-old male patient with history of multiple medical problems presents to the emergency department with complaints of syncopal episode x2 and non- traumatic right foot/right ankle pain for one week. Patient states he called his primary care provider this morning, but he was unable to be seen, so he came to the emergency department for further evaluation. General: Awake, appropriately interactive, no acute distress. Neck: Supple. Full range of motion intact. Cardiovascular: Normal peripheral perfusion. Pulmonary: No respiratory distress. Patient is speaking normally without use of accessory muscles. Skin: No apparent rashes or lesions. Neurological: No facial asymmetry. Speech is clear. Follows commands. Patient is alert and oriented. Musculoskeletal: Moves all four extremities spontaneously with normal range of motion. Psych: Cooperative. Appropriate mood and affect. I have greeted and performed a focused rapid initial assessment of this patient. A comprehensive ED assessment and evaluation of the patient, analysis of all test results, and completion of the medical decision-making process will be conducted by additional ED providers. This initial assessment/diagnostic orders/clinical plan/treatment(s) is/are subject to change based on patients health status, clinical progression and re-assessment. Further treatment and workup at subsequent clinical provider's discretion. Patient/guardian urged not to elope from the ED as their condition may be serious if not clinically assessed and managed.
[2020-08-05 09:13] LABS: Basophils % (Auto) 0.6 % (0.0-1.8); Eosinophils # (Auto) 0.2 K/mm3 (0.0-0.4); Eosinophils % (Auto) 2.6 % (0.0-4.3); Hematocrit 45.5 % (35.5-45.6); Hemoglobin 15.4 gm/dl (11.8-15.2); Lymphocytes # (Auto) 1.5 K/mm3 (1.2-5.4); Lymphocytes % (Auto) 25.3 % (13.4-35.0); Mean Corpuscular HGB Conc 34 % (32-34); Mean Corpuscular Volume 89 fl (84-94); Monocytes # (Auto) 0.4 K/mm3 (0.0-0.8); Monocytes % (Auto) 6.3 % (0.0-7.3); Platelet Count 153 K/mm3 (140-440); Red Blood Count 5.11 M/mm3 (3.65-5.03); Red Cell Distribution Width 14.5 % (13.2-15.2)
[2020-08-05 09:36] LABS: Alanine Aminotransferase 11 units/L (7-56); Albumin 3.5 g/dL (3.9-5); BUN/Creatinine Ratio 10; Blood Urea Nitrogen 10 mg/dL (9-20); Calcium 8.4 mg/dL (8.4-10.2); Hemolysis Index 14
[2020-08-05 09:48] LABS: Chol/HDL Ratio 4.53 %; HDL Cholesterol 45 mg/dL (40-59); LDL Cholesterol,Direct 148 mg/dL (50-130)
[2020-08-05 09:49] LABS: INR 1.01 (0.87-1.13); Partial Thromboplastin Time 28.9 Sec. (24.2-36.6)
--- NOTE | 2020-08-05 09:50 | XRay Report ---
RIGHT ANKLE 3 VIEWS 0859 INDICATION: pain COMPARISON: None available. FINDINGS: Mild ankle and tarsal degenerative changes are seen. Slight inferior calcaneal spurring is noted. No fractures or dislocations are noted. RIGHT FOOT 3 VIEWS 0856 INDICATION: pain COMPARISON: None available. FINDINGS: Mild tarsal and ankle degenerative changes are seen. Mild inferior calcaneal spurring is no eduardo. No fractures or dislocations are seen. Toes are mildly dorsiflexed. Signer Name: Fili Corea MD Signed: 08/05/2020 9:46 AM Workstation Name: [id number]
--- NOTE | 2020-08-05 09:53 | XRay Report ---
CHEST 2 VIEWS 0852 INDICATION / CLINICAL INFORMATION: syncope COMPARISON: 05/06/2016 FINDINGS: SUPPORT DEVICES: Port-A-Cath is again seen. A loop recorder is now noted on the left. HEART / MEDIASTINUM: No significant abnormality. LUNGS / PLEURA: No significant pulmonary or pleural abnormality. No pneumothorax. ADDITIONAL FINDINGS: No significant additional findings. IMPRESSION: No significant acute abnormality Signer Name: Fili Corea MD Signed: 08/05/2020 9:48 AM Workstation Name: [id number]
--- NOTE | 2020-08-05 14:00 | Electrocardiograph Report ---
[facility] Test Date: 2020-08-05 Test Time: 08:21:23 Pat Name: KACIE SEE Department: Room: Gender: M Customer Sales Advisor: : 1950 Requested By: HENNY DENNIS Order Number: [id number] Reading MD: Truong Young Measurements Intervals [place] Rate: 72 P: 51 AR: 192 QRS: 7 QRSD: 94 T: 46 QT: 412 QTc: 452 Interpretive Statements Sinus rhythm Probable left atrial enlargement No previous ECG available for comparison Electronically Signed On 08-05-2020 14:00:32 EDT by Truong Young
--- NOTE | 2020-08-05 17:11 | Emergency Department Report ---
ED Syncope HPI - General Chief Complaint: Syncope Stated Complaint: Syncope Time Seen by Provider: 08/05/20 16:50 Source: patient Exam Limitations: no limitations - History of Present Illness Initial Comments: 69-year-old male with history of hypertension, diabetes, lymphoma, implanted loop recorder, PE, presents to the ED with report of syncopal episodes. Patient states he has had 2 syncopal episodes in the past month. The first of which was 1 month ago, the last was 2 weeks ago. Patient states he decided to go and get checked out by his PCP, Dr. Espana. However, when he called to make an appointment, he was told that there were no appointments available for today and the patient come to the ER for evaluation. She has not had any syncopal episodes in the last 2 weeks. Patient feels as if his syncopal episodes are related to smoking cigarettes. He states recently, every time he smokes a cigarette he feels dizzy and lightheaded. Only twice has he actually lost consciousness. Patient states today, he smoked a cigarette and he felt dizzy but he did not pass out. He denies any associated fever, headache, chest pain, shortness of breath, leg swelling, vomiting, diarrhea. Patient reports he has received his first dose of the [place] COVID-19 vaccine. He is due to get his second dose on August 09. Cardiology: [facility] PCP: Malorie Timing/Prior Episodes: recent history Precipitating Factors: Positive: lightheadedness. Negative: nausea, recent head trauma, rapid heart beat Context: standing Loss of Consciousness: brief (seconds) Current Symptoms: back to normal. denies: chest pain, dizziness, headache, lightheadedness, loss of bladder control, loss of bowel control - Related Data Allergies/Adverse Reactions: Allergies codeine Allergy (Verified 05/06/16 16:50) hallucinations oxycodone Allergy (Verified 05/06/16 16:50) hallucinations Home Medications: Ambulatory Orders Clonidine HCl 0.2 mg PO BID 03/22/13 Gabapentin 300 mg PO BID 03/22/13 Lisinopril 40 mg PO QDAY 03/22/13 Metformin HCl 500 mg PO BID 03/22/13 Simvastatin 40 mg PO QDAY 03/22/13 Warfarin Sodium 5 mg PO QDAY 01/23/16 amLODIPine 10 mg PO DAILY 05/07/16 traMADol ER 100 MG 50 mg PO TID 05/07/16 Ciprofloxacin HCl [Cipro] 500 mg PO BID #28 tablet 09/01/17 ED Review of Systems ROS: Stated complaint: POSSIBLE STROKE Other details as noted in HPI Comment: All other systems reviewed and negative Constitutional: denies: chills, fever Respiratory: denies: cough, shortness of breath Cardiovascular: denies: chest pain, edema Musculoskeletal: other (Patient reports right foot pain; denies any lower extr emity swelling) Neurological: denies: headache ED Past Medical Hx - Past Medical History Previous Medical History?: Yes Hx Hypertension: Yes Hx Congestive Heart Failure: No Hx Diabetes: Yes Hx Deep Vein Thrombosis: Yes Hx Pulmonary Embolism: Yes (2011) Hx GERD: Yes Hx Arthritis: Yes Hx Asthma: No Hx COPD: No Hx HIV: No Additional medical history: Lymphoma, high cholesterol,. neuropathy - Surgical History Additional Surgical History: prostate - Social History Smoking Status: Light Tobacco Smoker Substance Use Type: None - Medications Home Medications: Home Medications Medication Instructions Recorded Confirmed Last Taken Type Clonidine HCl 0.2 mg PO BID 03/22/13 05/07/16 1 Day Ago History ~05/06/16 0.2 Gabapentin 300 mg PO BID 03/22/13 05/07/16 1 Day Ago History ~05/06/16 300 Lisinopril 40 mg PO QDAY 03/22/13 05/07/16 1 Day Ago History ~05/06/16 40 Metformin HCl 500 mg PO BID 03/22/13 05/07/16 1 Day Ago History ~05/06/16 500 Simvastatin 40 mg PO QDAY 03/22/13 05/07/16 1 Day Ago History ~05/06/16 40 Warfarin Sodium 5 mg PO QDAY 01/23/16 05/07/16 1 Day Ago History ~05/06/16 5 amLODIPine 10 mg PO DAILY 05/07/16 05/07/16 1 Day Ago History ~05/06/16 10 traMADol ER 100 MG 50 mg PO TID 05/07/16 05/07/16 1 Day Ago History ~05/06/16 50 Ciprofloxacin HCl [Cipro] 500 mg PO BID #28 tablet 09/01/17 Unknown Rx ED Physical Exam - General Limitations: No Limitations General appearance: alert, in no apparent distress - Head Head exam: Present: atraumatic, normocephalic - Eye Eye exam: Present: normal appearance, EOMI - ENT ENT exam: Present: mucous membranes moist - Neck Neck exam: Present: normal inspection - Respiratory Respiratory exam: Present: normal lung sounds bilaterally. Absent: respiratory distress - Cardiovascular Cardiovascular Exam: Present: regular rate, normal rhythm - GI/Abdominal GI/Abdominal exam: Present: soft. Absent: distended, tenderness - Extremities Exam Extremities exam: Present: normal inspection - Neurological Exam Neurological exam: Present: alert, oriented X3, CN II-XII intact. Absent: motor sensory deficit - Psychiatric Psychiatric exam: Present: normal affect, normal mood - Skin Skin exam: Present: warm, dry, intact, normal color ED Course Vital Signs 08/05/20 08/05/20 08/05/20 08:16 16:59 17:01 Temperature 98.2 F Pulse Rate 75 76 74 Respiratory 15 14 13 Rate Blood Pressure 162/82 198/95 O2 Sat by Pulse 98 99 96 Oximetry 08/05/20 08/05/20 08/05/20 17:15 17:31 17:45 Temperature Pulse Rate 62 66 72 Respiratory 20 17 17 Rate Blood Pressure 198/95 194/104 194/104 O2 Sat by Pulse 99 98 98 Oximetry 08/05/20 08/05/20 08/05/20 18:00 18:15 18:22 Temperature Pulse Rate 60 Respiratory 18 16 Rate Blood Pressure 195/100 194/104 O2 Sat by Pulse 100 99 Oximetry 08/05/20 08/05/20 08/05/20 18:24 18:31 18:36 Temperature Pulse Rate 84 57 L 74 Respiratory 15 Rate Blood Pressure 194/104 195/98 O2 Sat by Pulse 98 Oximetry 08/05/20 08/05/20 08/05/20 20:01 20:15 20:31 Temperature Pulse Rate 87 78 64 Respiratory 18 15 16 Rate Blood Pressure 195/98 195/98 195/98 O2 Sat by Pulse 98 98 98 Oximetry 08/05/20 08/05/20 08/05/20 20:45 21:01 21:15 Temperature Pulse Rate 67 57 L 68 Respiratory 17 16 17 Rate Blood Pressure 195/98 158/82 158/82 O2 Sat by Pulse 98 99 98 Oximetry 08/05/20 08/05/20 08/05/20 21:45 22:14 22:15 Temperature Pulse Rate 72 67 69 Respiratory 15 14 15 Rate Blood Pressure 153/79 140/81 153/79 O2 Sat by Pulse 97 98 98 Oximetry 08/05/20 08/05/20 08/05/20 22:25 22:31 22:41 Temperature Pulse Rate 71 70 57 L Respiratory 14 14 17 Rate Blood Pressure 140/81 140/81 140/81 O2 Sat by Pulse 97 97 98 Oximetry 08/05/20 08/05/20 22:51 23:01 Temperature Pulse Rate 79 84 Respiratory 17 17 Rate Blood Pressure 164/84 164/84 O2 Sat by Pulse 99 99 Oximetry - Reevaluation(s) Reevaluation #1: 08/05/20 18:17 It has been brought to my attention by fire extinguisher charger that there has been above average amt of slightly elevated troponins that were run this morning. Colleague has also had no normal troponins from this morning. Repeat troponins have been completely normal. ED Medical Decision Making - Lab Data Result diagrams: 08/05/20 08:27 08/05/20 08:27 - EKG Data -: EKG Interpreted by Id EKG shows normal: sinus rhythm, axis, intervals, QRS complexes, ST-T waves Rate: normal - EKG Data Interpretation: no acute changes - Radiology Data Radiology results: report reviewed, image reviewed - Medical Decision Making 69-year-old male presents to ED with dizziness and syncopal episodes over the last month. Patient found to be hypertensive with BP in the 190s. Patient given hydralazine. BP improved after work. CT head shows recent small deep infarct in the left internal capsule in addition to a cerebellar infarction. This may account for patient's episodes of dizziness. CTA is negative for PE. EKG is normal, however on the monitor, patient appears to have some irregularity to his rhythm, possible AV block. Patient does have a loop recorder implanted which may be able to provide further information. Initial troponin slightly elevated at 0.05, however there have been an above average number of elevated troponins today. This has been made aware to the lab. Patient's second troponin was completely normal, however the third was elevated again. Patient denies any chest pain. This information has been relayed to hospitalist, Dr. Lewis, who will be admitting the patient for further work-up. - Differential Diagnosis CVA, arrhythmia, PE Critical Care Time: Yes Critical care time in (mins) excluding proc time.: 35 Critical care attestation.: If time is entered above; I have spent that time in minutes in the direct care of this critically ill patient, excluding procedure time. Critical Care Time: 35 min ED Disposition Clinical Impression: CVA (cerebral vascular accident), Hypertensive emergency Disposition: [id number] OP ADMIT IP TO THIS HOSP Is pt being admited?: Yes Condition: Stable Time of Disposition: 21:28 - Assessment Assessment Interval: Baseline - Level of Consciousness 1a. Level of Consciousness: alert/keenly responsive - LOC Questions 1b. LOC Questions: answers both correctly - LOC Command 1c. LOC Commands: performs tasks correctly - Best Gaze 2. Best Gaze: normal - Visual 3. Visual: no visual loss - Facial Palsy 4. Facial Palsy: normal symmetrical movement - Motor Arm 5a. Motor Arm Left: no drift 5b. Motor Arm Right: no drift - Motor Leg 6a. Motor Leg Left: no drift 6b. Motor Leg Right: no drift - Limb Ataxia 7. Limb Ataxia: absent - Sensory 8. Sensory: normal - Best Language 9. Best Language: no aphasia - Dysarthria 10. Dysarthria: normal - Extinction and Inattention 11. Extinction/Inattention: no abnormality - Scoring Total Score: 0 Stroke Severity: No Stroke Symptoms
[2020-08-05 17:51] LABS: INR 0.93 (0.87-1.13); Partial Thromboplastin Time 29.1 Sec. (24.2-36.6)
[2020-08-05] MEDS ORDERED: hydrALAZINE 20 MG/1 ML INJ IV ONE (18:21)
[2020-08-05 18:47] LABS: Bilirubin,Urine NEG (Negative); Blood,Urine SM (Negative); Color,Urine Yellow (Yellow); Mucus,Urine FEW /HPF; Urobilinogen,Urine < 2.0 mg/dL (<2.0)
[2020-08-05 18:52] LABS: Protein,Urine >500 mg/dL (Negative)
--- NOTE | 2020-08-05 19:20 | Cat Scan Report ---
CTA CHEST WITH CONTRAST INDICATION / CLINICAL INFORMATION: dizziness, elevated d-dimer. TECHNIQUE: Axial CT images were obtained through the chest after injection of IV contrast. 3 plane SD P and/or 3D reconstructions were produced. All CT scans at this location are performed using CT dose reduction for ALARA by means of automated exposure control. COMPARISON: None available. FINDINGS: The pulmonary arteries are patent without filling defect or evidence for PTE. There is emphysematous change within the lungs bilaterally. Atelectasis is seen in the dependent portion of bilateral lungs. No focal consolidation is seen. Trachea appears normal. There are enlarged mediastinal periaortic no mary jane and adenopathy. Mild prominent hilar nodes also seen. No acute bone findings are seen. IMPRESSION: 1. No CT evidence for pulmonary embolism. 2. Mediastinal paratracheal and periaortic adenopathy with enlarged nodes. Findings could represent i nflammatory, infectious however follow-up to document other etiologies including carcinoma. No domina nt nodular mass is definitely seen within the lungs. 3. Emphysematous change within the lungs. Signer Name: Abdirahman Hill MD Signed: 08/05/2020 7:16 PM Workstation Name: [id number]
--- NOTE | 2020-08-05 19:32 | Cat Scan Report ---
CT HEAD WITHOUT CONTRAST INDICATION / CLINICAL INFORMATION: dizziness. TECHNIQUE: All CT scans at this location are performed using CT dose reduction for ALARA by means of automated e xposure control. COMPARISON: None available. FINDINGS: HEMORRHAGE: No evidence of intracranial hemorrhage or extra-axial fluid collection. EXTRA-AXIAL SPACES: Cortical sulci, sylvian fissures and basilar cisterns have an unremarkable appear ance. VENTRICULAR SYSTEM: The third and lateral ventricles are of normal size and configuration. CEREBRAL PARENCHYMA: There is evidence of remote small deep infarction in the white matter of the lef t frontal lobe. A similar finding is seen in the vicinity of the anterior limb of the internal capsul e on the right. More subtle area of decreased brain parenchymal attenuation is observed in the genu o f the left internal capsule where a recent infarction could be present. Correlation with clinical sym ptoms is advised. Is there history of right hemiparesis Magnetic resonance imaging would be useful ne xt step in the further evaluation this finding. Additionally noted is moderate microvascular ischemic changes in the white matter of both cerebral hemispheres. MIDLINE SHIFT OR HERNIATION: There is no mass effect. CEREBELLUM / BRAINSTEM: Brainstem has an unremarkable appearance. There is an area of decreased atten uation in the medial aspect of the left cerebellar hemisphere consistent with remote small cerebellar infarction. MIDLINE STRUCTURES:No abnormalities of the pituitary gland or pineal region are identified. INTRACRANIAL VESSELS: Calcified atherosclerotic plaque is seen along the course the cavernous segment s of both internal carotid arteries. ORBITS: visualized portions of the orbits have an unremarkable appearance. SOFT TISSUES of HEAD: No significant abnormality. CALVARIUM: Evaluation of bone windows reveals no abnormalities. PARANASAL SINUSES / MASTOID AIR CELLS: Visualized portions of the paranasal sinuses are free from inf lammatory mucosal disease. Mastoid air cells are normally pneumatized. IMPRESSION: 1. There is a subtle area of decreased brain parenchymal attenuation near the genu of the left epidemiology intern al capsule. This could represent a recent small deep infarction. Further evaluation with magnetic res onance imaging would be useful to clarify this finding if clinically warranted. 2. Remote small deep infarctions as described above. Signer Name: Uriel Logan MD Signed: 08/05/2020 7:27 PM Workstation Name: [id number]
[2020-08-05] MEDS ORDERED: MAGNESIUM HYDROXIDE (MOM) ORAL LIQD UDC PO PRN ×2 (21:49)
[2020-08-05] MEDS ORDERED: ONDANSETRON 4 MG/2 ML INJ IV PRN ×2 (21:49)
[2020-08-05] MEDS ORDERED: DEXTROSE 50% IN WATER (25GM) 50 ML SYRINGE IV PRN (21:49)
[2020-08-05] MEDS ORDERED: ACETAMINOPHEN 325 MG TAB PO PRN ×2 (21:49)
[2020-08-05] MEDS ORDERED: METOCLOPRAMIDE 10 MG TAB PO PRN (21:49)
--- NOTE | 2020-08-05 22:03 | History and Physical Report ---
History of Present Illness Date of examination: 08/05/20 Date of admission: 08/05/20 21:42 Chief complaint: Syncope History of present illness: 69-year-old -[place] male with known history of hypertension, diabetes mellitus, lymphoma, implanted loop recorder, neuropathy and history of pulmonary embolism in 2011 presenting in the emergency room today with complaints of syncope. Patient has had 2 syncopal episodes and that within the past 4 weeks. For syncopal episode episode was about a month ago and then he had a second syncopal episode 2 weeks later. He has had occasional dizziness and blurry vision. He denies any headache. No nausea or vomiting, no fever or chills, no diaphoresis. He denies any chest pain or shortness of breath. Patient got in touch with his primary care physician who encouraged him to report to the emergency room for further evaluation. He states he has been compliant with his medications. He also indicates that he has had his first dose of [employer] COVID-19 vaccine and due for second dose on August 09. Upon arrival in the emergency room today blood pressure was elevated at 195/98 and indicates he has not had his blood pressure medications today. Work-up in the emergency room today, chest x-ray reveals a loop recorder on the left otherwise no significant abnormalities seen. EKG and labs were unremarkable. CT scan of the head reveals subcu area of decreased brain parenchymal attenuation near the genu of the left internal capsule. This could represent a recent small deep infection. Further evaluation with MRI was recommended. Patient being admitted with syncope, possible CVA and hypertension. Past History Past Medical History: arthritis, diabetes, DVT, GERD, hypertension, hyperlipidemia, pulmonary embolism, other (Lymphoma,Neuropathy) Social history: smoking (Former Smoker) Family history: no significant family history Medications and Allergies Allergies Allergy/AdvReac Type Severity Reaction Status Date / Time codeine Allergy hallucinati Verified 05/06/16 16:50 ons oxycodone Allergy hallucinati Verified 05/06/16 16:50 ons Home Medications Medication Instructions Recorded Confirmed Last Taken Type Clonidine HCl 0.2 mg PO BID 03/22/13 05/07/16 1 Day Ago History ~05/06/16 0.2 Gabapentin 300 mg PO BID 03/22/13 05/07/16 1 Day Ago History ~05/06/16 300 Lisinopril 40 mg PO QDAY 03/22/13 05/07/16 1 Day Ago History ~05/06/16 40 Metformin HCl 500 mg PO BID 03/22/13 05/07/16 1 Day Ago History ~05/06/16 500 Simvastatin 40 mg PO QDAY 03/22/13 05/07/16 1 Day Ago History ~05/06/16 40 Warfarin Sodium 5 mg PO QDAY 01/23/16 05/07/16 1 Day Ago History ~05/06/16 5 amLODIPine 10 mg PO DAILY 05/07/16 05/07/16 1 Day Ago History ~05/06/16 10 traMADol ER 100 MG 50 mg PO TID 05/07/16 05/07/16 1 Day Ago History ~05/06/16 50 Ciprofloxacin HCl [Cipro] 500 mg PO BID #28 tablet 09/01/17 Unknown Rx Active Meds: Active Medications Acetaminophen (Acetaminophen 325 Mg Tab) 650 mg PO Q4H PRN PRN Reason: Pain MILD(1-3)/Fever >100.5/ABARCA Acetaminophen (Acetaminophen 325 Mg Tab) 650 mg PO Q4H PRN PRN Reason: Pain, Mild (1-3) Aspirin (Aspirin 325 Mg Tab) 325 mg PO QDAY PIPE Atorvastatin Calcium (Atorvastatin 40 Mg Tab) 40 mg PO QHS PIPE Bisacodyl (Bisacodyl 10 Mg Rect Supp) 10 mg [place] QDAY PRN PRN Reason: Constipation Dextrose (Dextrose 50% In Water (25gm) 50 Ml Syringe) 50 ml IV Q30MIN PRN; Protocol PRN Reason: Hypoglycemia Dextrose (Dextrose 50% In Water (25gm) 50 Ml Syringe) 50 ml IV Q30MIN PRN; Protocol PRN Reason: Hypoglycemia Insulin Human Lispro (Insulin Lispro 100 Unit/Ml) 0 unit SUB-Q ACHS PIPE; Protocol Magnesium Hydroxide (Magnesium Hydroxide (Mom) Oral Liqd Udc) 30 ml PO Q4H PRN PRN Reason: Constipation Magnesium Hydroxide (Magnesium Hydroxide (Mom) Oral Liqd Udc) 30 ml PO Q4H PRN PRN Reason: Constipation Metoclopramide HCl (Metoclopramide 10 Mg Tab) 10 mg PO Q6H PRN PRN Reason: Nausea And Vomiting Ondansetron HCl (Ondansetron 4 Mg/2 Ml Inj) 4 mg IV Q8H PRN PRN Reason: Nausea And Vomiting Ondansetron HCl (Ondansetron 4 Mg/2 Ml Inj) 4 mg IV Q8H PRN PRN Reason: Nausea And Vomiting Sodium Chloride (Sodium Chloride 0.9% 10 Ml Flush Syringe) 10 ml IV BID PIPE Sodium Chloride (Sodium Chloride 0.9% 10 Ml Flush Syringe) 10 ml IV PRN PRN PRN Reason: LINE FLUSH Sodium Chloride (Sodium Chloride 0.9% 10 Ml Flush Syringe) 10 ml INJ PRN PRN PRN Reason: LINE FLUSH Review of Systems Constitutional: no fever, no chills Ears, nose, mouth and throat: no nasal congestion, no sore throat Cardiovascular: syncope, no chest pain Respiratory: no cough, no shortness of breath Gastrointestinal: no abdominal pain, no nausea, no vomiting, no diarrhea Genitourinary Male: no dysuria, no hematuria, no nocturia Musculoskeletal: no neck pain, no low back pain Integumentary: no rash, no pruritis Neurological: syncope, no headaches, no confusion Psychiatric: no anxiety, no depression Endocrine: no polyphagia, no polydipsia, no polyuria, no nocturia Exam - Constitutional Vitals: Temp Pulse Resp BP Pulse Ox 98.2 F 72 15 153/79 97 08/05/20 08:16 08/05/20 21:45 08/05/20 21:45 08/05/20 21:45 08/05/20 21:45 General appearance: Present: no acute distress, well-nourished - EENT Eyes: Present: PERRL, EOM intact. Absent: scleral icterus ENT: hearing intact, clear oral mucosa, dentition normal - Neck Neck: Present: supple, normal ROM - Respiratory Respiratory effort: normal Respiratory: bilateral: CTA - Cardiovascular Rhythm: regular Heart Sounds: Present: S1 & S2. Absent: gallop, systolic murmur, diastolic murmur, rub, click - Extremities Extremities: no ischemia, pulses intact, pulses symmetrical, No edema, normal temperature, normal color, Full ROM Peripheral Pulses: within normal limits - Abdominal General gastrointestinal: Present: soft, non-tender, non-distended, normal bowel sounds. Absent: mass - Integumentary Integumentary: Present: clear, warm, dry. Absent: rash - Musculoskeletal Musculoskeletal: strength equal bilaterally - Psychiatric Psychiatric: appropriate mood/affect, intact judgment & insight, memory intact, cooperative - Neurologic Neurologic: CNII-XII intact, no focal deficits, moves all extremities HEART Score - HEART Score Troponin: Troponin T 0.053 ng/mL (0.00-0.029) H D 08/05/20 19:30 Results - Labs CBC & Chem 7: 08/05/20 08:27 08/05/20 08:27 Labs: Abnormal lab results 08/05/20 08/05/20 08/05/20 Range/Units 08:27 08:27 17:20 RBC 5.11 H (3.65-5.03) M/mm3 Hgb 15.4 H (11.8-15.2) gm/dl D-Dimer 245.02 H (0-234) ng/mlDDU Glucose 127 H (75-100) mg/dL Magnesium 1.60 L (1.7-2.3) mg/dL Troponin T 0.051 H (0.00-0.029) ng/mL Total Protein 6.1 L (6.3-8.2) g/dL Albumin 3.5 L (3.9-5) g/dL Cholesterol 204 H (50-199) mg/dL LDL Cholesterol Direct 148 H (50-130) mg/dL 08/05/20 Range/Units 19:30 RBC (3.65-5.03) M/mm3 Hgb (11.8-15.2) gm/dl D-Dimer (0-234) ng/mlDDU Glucose (75-100) mg/dL Magnesium (1.7-2.3) mg/dL Troponin T 0.053 H D (0.00-0.029) ng/mL Total Protein (6.3-8.2) g/dL Albumin (3.9-5) g/dL Cholesterol (50-199) mg/dL LDL Cholesterol Direct (50-130) mg/dL Assessment and Plan - Patient Problems (1) Syncope Current Visit: Yes Status: Acute Plan to address problem: Patient admitted and placed on telemetry. We will schedule patient for carotid Doppler and echocardiogram. (2) Hypertensive emergency Current Visit: Yes Status: Acute Plan to address problem: We will resume patient's routine home medications and monitor vital signs closely. Compliance with medication is also encouraged. (3) CVA (cerebral vascular accident) Current Visit: Yes Status: Acute Plan to address problem: We will commence patient on aspirin and statin. We will schedule patient for carotid Doppler and MRI of the brain. We will place consult to neurology for evaluation. (4) Diabetes mellitus Current Visit: Yes Status: Acute Plan to address problem: Patient placed on sliding scale insulin. We will monitor Accu-Cheks closely. Will also check hemoglobin A1c. (5) Elevated troponin Current Visit: Yes Status: Acute Plan to address problem: Patient has denied any chest pain. No acute EKG changes. We will trend troponin levels. (6) DVT prophylaxis Current Visit: Yes Status: Acute Plan to address problem: Patient placed on subcutaneous Lovenox. (7) Full code status Current Visit: Yes Status: Acute Plan to address problem: Patient is a full code.
[2020-08-05] MEDS: INSULIN LISPRO 100 UNIT/ML SUB-Q SCH (23:57)
--- NOTE | 2020-08-06 07:16 | Consultation ---
History of Present Illness Consult date: 08/06/20 Reason for Consult: syncopy History of present illness: Syncope History of present illness: 69-year-old -[place] male with known history of hypertension, diabetes mellitus, lymphoma, implanted loop recorder X3 months by cardiology, neuropathy and history of pulmonary embolism in 2011 presenting in the emergency room today with complaints of syncope. Patient has had 2 syncopal episodes and that within the past 4 weeks. For syncopal episode episode was about a month ago and then he had a second syncopal episode 2 weeks later he does not recall what happened he found him self on the floor next to ref. with left side weakness started using cane and yesterday decided to come to ER?he lives alone , denied tongue bitting or incontince. denied hx of seizure , he discripes recurrent heart racing intermittently He has had occasional dizziness and blurry vision. He denies any headache. No nausea or vomiting, no fever or chills, no diaphoresis. He denies any chest pain or shortness of breath. Patient got in touch with his primary care physician who encouraged him to report to the emergency room for further evaluation. He states he has been compliant with his medications. He also indicates that he has had his first dose of [email or web address] COVID-19 vaccine and due for second dose on August 09. Upon arrival in the emergency room today blood pressure was elevated at 195/98 and indicates he has not had his blood pressure medications today. Work-up in the emergency room today, chest x-ray reveals a loop recorder on the left otherwise no significant abnormalities seen. EKG and labs were unremarkable. CT scan of the head reveals subcu area of decreased brain parenchymal attenuation near the genu of the left internal capsule. This could represent a recent small deep infection. Further evaluation with MRI was recommended. Patient being admitted with syncope, possible CVA and hypertension. Past History Past Medical History: arthritis, diabetes, DVT, GERD, hypertension, hyperlipidemia, pulmonary embolism, other (Lymphoma,Neuropathy) Social history: smoking (Former Smoker) Family history: no significant family history Medications and Allergies Allergies Allergy/AdvReac Type Severity Reaction Status Date / Time codeine Allergy hallucinati Verified 05/06/16 16:50 ons oxycodone Allergy hallucinati Verified 05/06/16 16:50 ons Home Medications Medication Instructions Recorded Confirmed Last Taken Type Clonidine HCl 0.2 mg PO BID 03/22/13 05/07/16 1 Day Ago History ~05/06/16 0.2 Gabapentin 300 mg PO BID 03/22/13 05/07/16 1 Day Ago History ~05/06/16 300 Lisinopril 40 mg PO QDAY 03/22/13 05/07/16 1 Day Ago History ~05/06/16 40 Metformin HCl 500 mg PO BID 03/22/13 05/07/16 1 Day Ago History ~05/06/16 500 Simvastatin 40 mg PO QDAY 03/22/13 05/07/16 1 Day Ago History ~05/06/16 40 Warfarin Sodium 5 mg PO QDAY 01/23/16 05/07/16 1 Day Ago History ~05/06/16 5 amLODIPine 10 mg PO DAILY 05/07/16 05/07/16 1 Day Ago History ~05/06/16 10 traMADol ER 100 MG 50 mg PO TID 05/07/16 05/07/16 1 Day Ago History ~05/06/16 50 Ciprofloxacin HCl [Cipro] 500 mg PO BID #28 tablet 09/01/17 Unknown Rx Active Meds: Active Medications Acetaminophen (Acetaminophen 325 Mg Tab) 650 mg PO Q4H PRN PRN Reason: Pain MILD(1-3)/Fever >100.5/ABARCA Acetaminophen (Acetaminophen 325 Mg Tab) 650 mg PO Q4H PRN PRN Reason: Pain, Mild (1-3) Aspirin (Aspirin 325 Mg Tab) 325 mg PO QDAY PIPE Atorvastatin Calcium (Atorvastatin 40 Mg Tab) 40 mg PO QHS [facility] Bisacodyl (Bisacodyl 10 Mg Rect Supp) 10 mg [place] QDAY PRN PRN Reason: Constipation Dextrose (Dextrose 50% In Water (25gm) 50 Ml Syringe) 50 ml IV Q30MIN PRN; Protocol PRN Reason: Hypoglycemia Dextrose (Dextrose 50% In Water (25gm) 50 Ml Syringe) 50 ml IV Q30MIN PRN; Protocol PRN Reason: Hypoglycemia Insulin Human Lispro (Insulin Lispro 100 Unit/Ml) 0 unit SUB-Q ACHS PIPE; Protocol Magnesium Hydroxide (Magnesium Hydroxide (Mom) Oral Liqd Udc) 30 ml PO Q4H PRN PRN Reason: Constipation Magnesium Hydroxide (Magnesium Hydroxide (Mom) Oral Liqd Udc) 30 ml PO Q4H PRN PRN Reason: Constipation Metoclopramide HCl (Metoclopramide 10 Mg Tab) 10 mg PO Q6H PRN PRN Reason: Nausea And Vomiting Ondansetron HCl (Ondansetron 4 Mg/2 Ml Inj) 4 mg IV Q8H PRN PRN Reason: Nausea And Vomiting Ondansetron HCl (Ondansetron 4 Mg/2 Ml Inj) 4 mg IV Q8H PRN PRN Reason: Nausea And Vomiting Sodium Chloride (Sodium Chloride 0.9% 10 Ml Flush Syringe) 10 ml IV BID PIPE Sodium Chloride (Sodium Chloride 0.9% 10 Ml Flush Syringe) 10 ml IV PRN PRN PRN Reason: LINE FLUSH Sodium Chloride (Sodium Chloride 0.9% 10 Ml Flush Syringe) 10 ml INJ PRN PRN PRN Reason: LINE FLUSH Review of Systems Constitutional: no fever, no chills Ears, nose, mouth and throat: no nasal congestion, no sore throat Cardiovascular: syncope, no chest pain Respiratory: no cough, no shortness of breath Gastrointestinal: no abdominal pain, no nausea, no vomiting, no diarrhea Genitourinary Male: no dysuria, no hematuria, no nocturia Musculoskeletal: no neck pain, no low back pain Integumentary: no rash, no pruritis Neurological: syncope, no headaches, no confusion Psychiatric: no anxiety, no depression Endocrine: no polyphagia, no polydipsia, no polyuria, no nocturia Past History Past Medical History: arthritis, diabetes, DVT, GERD, hypertension, hyperlipidemia, pulmonary embolism, other (Lymphoma,Neuropathy) Social history: smoking (Former Smoker) Family history: no significant family history Medications and Allergies Allergies Allergy/AdvReac Type Severity Reaction Status Date / Time codeine Allergy hallucinati Verified 05/06/16 16:50 ons oxycodone Allergy hallucinati Verified 05/06/16 16:50 ons Home Medications Medication Instructions Recorded Confirmed Last Taken Type Clonidine HCl 0.2 mg PO BID 03/22/13 05/07/16 1 Day Ago History ~05/06/16 0.2 Gabapentin 300 mg PO BID 03/22/13 05/07/16 1 Day Ago History ~05/06/16 300 Lisinopril 40 mg PO QDAY 03/22/13 05/07/16 1 Day Ago History ~05/06/16 40 Metformin HCl 500 mg PO BID 03/22/13 05/07/16 1 Day Ago History ~05/06/16 500 Simvastatin 40 mg PO QDAY 03/22/13 05/07/16 1 Day Ago History ~05/06/16 40 Warfarin Sodium 5 mg PO QDAY 01/23/16 05/07/16 1 Day Ago History ~05/06/16 5 amLODIPine 10 mg PO DAILY 05/07/16 05/07/16 1 Day Ago History ~05/06/16 10 traMADol ER 100 MG 50 mg PO TID 05/07/16 05/07/16 1 Day Ago History ~05/06/16 50 Ciprofloxacin HCl [Cipro] 500 mg PO BID #28 tablet 09/01/17 Unknown Rx Active Meds: Active Medications Acetaminophen (Acetaminophen 325 Mg Tab) 650 mg PO Q4H PRN PRN Reason: Pain MILD(1-3)/Fever >100.5/ABARCA Amlodipine Besylate (Amlodipine 10 Mg Tab) 10 mg PO DAILY [facility] Aspirin (Aspirin 325 Mg Tab) 325 mg PO QDAY [facility] Bisacodyl (Bisacodyl 10 Mg Rect Supp) 10 mg [place] QDAY PRN PRN Reason: Constipation Clonidine HCl (Clonidine 0.2 Mg Tab) 0.2 mg PO BID@0800,1700 [facility] Dextrose (Dextrose 50% In Water (25gm) 50 Ml Syringe) 0 ml IV Q30MIN PRN; Protocol PRN Reason: Hypoglycemia Enoxaparin Sodium (Enoxaparin 40 Mg/0.4 Ml Inj) 40 mg SUB-Q QDAY@2200 [facility]; Protocol Gabapentin (Gabapentin 300 Mg Cap) 300 mg PO BID [facility] Insulin Human Lispro (Insulin Lispro 100 Unit/Ml) 0 unit SUB-Q [facility]; Protocol Last Admin: 08/05/20 23:57 Dose: Not Given Documented by: Lisinopril (Lisinopril 40 Mg Tab) 40 mg PO QDAY [facility] Magnesium Hydroxide (Magnesium Hydroxide (Mom) Oral Liqd Udc) 30 ml PO Q4H PRN PRN Reason: Constipation Metoclopramide HCl (Metoclopramide 10 Mg Tab) 10 mg PO Q6H PRN PRN Reason: Nausea And Vomiting Ondansetron HCl (Ondansetron 4 Mg/2 Ml Inj) 4 mg IV Q8H PRN PRN Reason: Nausea And Vomiting Pravastatin Sodium (Pravastatin 80 Mg Tab) 80 mg PO QHS [facility] Sodium Chloride (Sodium Chloride 0.9% 10 Ml Flush Syringe) 10 ml IV BID PIPE Last Admin: 08/05/20 23:57 Dose: 10 ml Documented by: Sodium Chloride (Sodium Chloride 0.9% 10 Ml Flush Syringe) 10 ml IV PRN PRN PRN Reason: LINE FLUSH Physical Examination - Vital Signs Vital Signs: Vital Signs Temp Pulse Resp BP Pulse Ox 98.2 F 75 15 162/82 98 08/05/20 08:16 08/05/20 08:16 08/05/20 08:16 08/05/20 08:16 08/05/20 08:16 - Constitutional General appearance: comfortable - EENT EENT: Present: PERRL, mucous membranes moist - Respiratory Respiratory: Present: chest non-tender, lungs clear, rhonchi - Cardiovascular Cardiovascular: Present: normal S1, normal S2 Extremities: Present: no peripheral edema bilatateraly - Gastrointestinal Gastrointestinal: Present: normoactive bowel sounds - Integumentary Integumentary: Present: normal - Neurologic Cranial nerve examination: PERRL, EOMI, intact Speech examination: intact Sensorimotor examination: intact Detailed motor examination: grossly full strength in Detailed sensory examination: intact - Level of Consciousness 1a. Level of Consciousness: alert/keenly responsive - LOC Questions 1b. LOC Questions: answers both correctly - LOC Command 1c. LOC Commands: performs tasks correctly - Best Gaze 2. Best Gaze: normal - Visual 3. Visual: no visual loss - Facial Palsy 4. Facial Palsy: normal symmetrical movement - Motor Arm 5a. Motor Arm Left: no drift 5b. Motor Arm Right: no drift - Motor Leg 6a. Motor Leg Left: no drift 6b. Motor Leg Right: no drift - Limb Ataxia 7. Limb Ataxia: absent - Sensory 8. Sensory: normal - Best Language 9. Best Language: no aphasia - Dysarthria 10. Dysarthria: normal - Extinction and Inattention 11. Extinction/Inattention: no abnormality - Scoring Total Score: 0 Stroke Severity: No Stroke Symptoms Results - Laboratory Findings CBC and BMP: 08/05/20 08:27 08/05/20 08:27 Abnormal Lab Findings: Abnormal Labs 08/05/20 08/05/20 08/05/20 08:27 08:27 08:27 RBC 5.11 H Hgb 15.4 H D-Dimer Glucose 127 H POC Glucose Hemoglobin A1c 6.8 H Magnesium 1.60 L Troponin T 0.051 H Total Protein 6.1 L Albumin 3.5 L Cholesterol 204 H LDL Cholesterol Direct 148 H 08/05/20 08/05/20 08/05/20 17:20 19:30 23:40 RBC Hgb D-Dimer 245.02 H Glucose POC Glucose 127 H Hemoglobin A1c Magnesium Troponin T 0.053 H D Total Protein Albumin Cholesterol LDL Cholesterol Direct Assessment and Plan - Patient Problems # Syncope -Patient admitted and placed on telemetry. -We will schedule patient for carotid Doppler and echocardiogram. -MRI if possible he is with loop implant -EEG -Loop implant reading # Hypertensive emergency -We will resume patient's routine home medications and monitor vital signs closely. -Compliance with medication is also encouraged. - check for orthostatic changes # CVA (cerebral vascular accident) -We will commence patient on aspirin and statin. -We will schedule patient for carotid Doppler and MRI of the brain. -? consider resume coumadine INR was subtherapeutic -- on coumadine for 5 years following diagnosis with PE and Lymphoma -PT/ST evaluate # Diabetes mellitus -Patient placed on sliding scale insulin. -We will monitor Accu-Cheks closely. -Hemoglobin A1c.#6.8 # HLP -LDL#148 -Lipitor 40 mg # Elevated troponin -Patient has denied any chest pain. No acute EKG changes. -We will trend troponin levels. #DVT prophylaxis -Patient placed on subcutaneous Lovenox. # Full code status -Patient is a full code. will follow
[2020-08-06] MEDS: INSULIN LISPRO 100 UNIT/ML SUB-Q SCH ×4 (07:58→21:38)
[2020-08-06] MEDS: cloNIDine 0.2 MG TAB PO SCH ×2 (08:57→16:35)
[2020-08-06] MEDS: ASPIRIN 325 MG TAB PO SCH (09:00)
[2020-08-06] MEDS: amLODIPine 10 MG TAB PO SCH (09:00)
[2020-08-06] MEDS: LISINOPRIL 40 MG TAB PO SCH (09:00)
[2020-08-06] MEDS: GABAPENTIN 300 MG CAP PO SCH ×2 (09:00→21:38)
[2020-08-06] MEDS ORDERED: WARFARIN 5 MG TAB PO SCH (10:00)
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
[2020-08-06] MEDS: ENOXAPARIN 40 MG/0.4 ML INJ SUB-Q SCH (21:38)
[2020-08-06] MEDS: PRAVASTATIN 80 MG TAB PO SCH (21:38)
[2020-08-07] MEDS: INSULIN LISPRO 100 UNIT/ML SUB-Q SCH ×4 (08:02→23:06)
[2020-08-07] MEDS: cloNIDine 0.2 MG TAB PO SCH ×3 (08:58→16:19)
[2020-08-07] MEDS: amLODIPine 10 MG TAB PO SCH (08:59)
[2020-08-07] MEDS: ASPIRIN 325 MG TAB PO SCH (08:59)
[2020-08-07] MEDS: GABAPENTIN 300 MG CAP PO SCH ×2 (08:59→23:05)
[2020-08-07] MEDS: LISINOPRIL 40 MG TAB PO SCH (09:00)
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
--- NOTE | 2020-08-07 12:32 | Progress Note ---
Assessment and Plan - Patient Problems # Syncope -Patient admitted and placed on telemetry. -We will schedule patient for carotid Doppler and echocardiogram. -MRI if possible he is with loop implant -EEG -Loop implant reading # Hypertensive emergency -We will resume patient's routine home medications and monitor vital signs closely. -Compliance with medication is also encouraged. - check for orthostatic changes # CVA (cerebral vascular accident) -We will commence patient on aspirin and statin. -We will schedule patient for carotid Doppler and MRI of the brain. -? consider resume coumadine INR was subtherapeutic -- on coumadine for 5 years following diagnosis with PE and Lymphoma -PT/ST evaluate # Diabetes mellitus -Patient placed on sliding scale insulin. -We will monitor Accu-Cheks closely. -Hemoglobin A1c.#6.8 # HLP -LDL#148 -Provachol 80 mg # Elevated troponin -Patient has denied any chest pain. No acute EKG changes. -We will trend troponin levels. #DVT prophylaxis -Patient placed on subcutaneous Lovenox. # Full code status -Patient is a full code. will follow as needed Subjective Date of service: 08/07/20 Principal diagnosis: recurrent syncopy ,weakness Interval history: pt. is doing well today denied weakness .dizziness or fall he is alert interactive MRI brain and echo are pending EEG pending A1C#6.8 LDL#148 Objective - Vital Sign Vital Signs - 12hr 08/07/20 08/07/20 08/07/20 03:32 08:00 08:59 Temperature 97.9 F Pulse Rate 64 70 Respiratory 14 18 Rate Blood Pressure 107/62 122/61 O2 Sat by Pulse 96 98 Oximetry 08/07/20 09:00 Temperature Pulse Rate 70 Respiratory Rate Blood Pressure 122/61 O2 Sat by Pulse Oximetry - General Apperance Constitutional: comfortable - EENT EENT: ATNC, PERRL - Respiratory Respiratory: chest non-tender, lungs clear, normal breath sounds - Cardiovascular Cardiovascular: regular rate, normal S1, normal S2 Extremities: no peripheral edema bilat - Gastrointestinal Gastrointestinal: normoactive bowel sounds - Integumentary Integumentary: normal - Neurologic Cranial nerve examination: PERRL, EOMI, VFF, intact Detailed motor examination: grossly full strength in Detailed sensory examination: intact - Laboratory Findings CBC and BMP: 08/05/20 08:27 08/05/20 08:27 Abnormal Lab Findings: Abnormal Labs 08/05/20 08/05/20 08/05/20 08:27 08:27 08:27 RBC 5.11 H Hgb 15.4 H D-Dimer Glucose 127 H POC Glucose Hemoglobin A1c 6.8 H Magnesium 1.60 L Troponin T 0.051 H Total Protein 6.1 L Albumin 3.5 L Cholesterol 204 H LDL Cholesterol Direct 148 H 08/05/20 08/05/20 08/05/20 17:20 19:30 23:40 RBC Hgb D-Dimer 245.02 H Glucose POC Glucose 127 H Hemoglobin A1c Magnesium Troponin T 0.053 H D Total Protein Albumin Cholesterol LDL Cholesterol Direct 08/06/20 08/06/20 08/06/20 07:38 11:06 15:58 RBC Hgb D-Dimer Glucose POC Glucose 118 H 180 H 163 H Hemoglobin A1c Magnesium Troponin T Total Protein Albumin Cholesterol LDL Cholesterol Direct 08/07/20 07:55 RBC Hgb D-Dimer Glucose POC Glucose 157 H Hemoglobin A1c Magnesium Troponin T Total Protein Albumin Cholesterol LDL Cholesterol Direct
--- NOTE | 2020-08-07 13:45 | Cat Scan Report ---
CT HEAD WITHOUT CONTRAST INDICATION / CLINICAL INFORMATION: CVA. TECHNIQUE: All CT scans at this location are performed using CT dose reduction for ALARA by means of automated e xposure control. COMPARISON: Head CT 08/05/2020 FINDINGS: HEMORRHAGE: No evidence of intracranial hemorrhage or extra-axial fluid collection. EXTRA-AXIAL SPACES: Cortical sulci, sylvian fissures and basilar cisterns have an unremarkable appear ance. VENTRICULAR SYSTEM: The third and lateral ventricles are of normal size and configuration. CEREBRAL PARENCHYMA: Evidence of remote small deep infarction is observed in the centrum semiovale of the left frontal lobe. A more subtle area of decreased attenuation near the genu of the internal cap josy on the left also represent a small deep infarction. This is unchanged compared to previous study . Focal areas of decreased attenuation are also seen in the right gangliocapsular region where a gilma te small deep infarctions are suspected. More diffuse moderate periventricular and deep white matter lucency likely reflects the presence of microvascular ischemic change stable since prior study. MIDLINE SHIFT OR HERNIATION: There is no mass effect. CEREBELLUM / BRAINSTEM: Brainstem and cerebellum have an unremarkable appearance. MIDLINE STRUCTURES:No abnormalities of the pituitary gland or pineal region are identified. INTRACRANIAL VESSELS: Mildly calcified atherosclerotic plaque is observed along the course the cavern ous segments of both internal carotid arteries. ORBITS: visualized portions of the orbits have an unremarkable appearance. SOFT TISSUES of HEAD: No significant abnormality. CALVARIUM: Evaluation of bone windows reveals no abnormalities. PARANASAL SINUSES / MASTOID AIR CELLS: Visualized portions of the paranasal sinuses are free from inf lammatory mucosal disease. Mastoid air cells are normally pneumatized. IMPRESSION: 1. No acute intracranial abnormality. 2. Multiple remote small deep infarctions in a bilateral gangliocapsular distribution 3. Moderate microvascular ischemic change. Signer Name: Uriel Logan MD Signed: 08/07/2020 1:41 PM Workstation Name: [id number]
--- NOTE | 2020-08-07 19:01 | Consultation ---
History of Present Illness Consult date: 08/07/20 History of present illness: 69M with PMHx of prior implantable loop recorder placement, HTN, DM, lymphoma, and hx of PE 2012 was admitted with syncope. He reportedly had 2 syncopal episodes within the past 4 weeks. However, at present, patient denies any history of syncope. He denies CP, SOB, lightheadedness, dizziness, or palpitations. Workup showed multiple remote infarctions per CT head. CT chest showed no PE but lymphadenopathy. Patient is currently being followed by neurology. Past History Past Medical History: arthritis, diabetes, DVT, GERD, hypertension, hyperlipidemia, pulmonary embolism, other (Lymphoma,Neuropathy) Social history: smoking (Former Smoker) Family history: no significant family history Medications and Allergies Allergies Allergy/AdvReac Type Severity Reaction Status Date / Time codeine Allergy hallucinati Verified 05/06/16 16:50 ons oxycodone Allergy hallucinati Verified 05/06/16 16:50 ons Home Medications Medication Instructions Recorded Confirmed Last Taken Type Clonidine HCl 0.2 mg PO BID 03/22/13 05/07/16 1 Day Ago History ~05/06/16 0.2 Gabapentin 300 mg PO BID 03/22/13 05/07/16 1 Day Ago History ~05/06/16 300 Lisinopril 40 mg PO QDAY 03/22/13 05/07/16 1 Day Ago History ~05/06/16 40 Metformin HCl 500 mg PO BID 03/22/13 05/07/16 1 Day Ago History ~05/06/16 500 Simvastatin 40 mg PO QDAY 03/22/13 05/07/16 1 Day Ago History ~05/06/16 40 Warfarin Sodium 5 mg PO QDAY 01/23/16 05/07/16 1 Day Ago History ~05/06/16 5 amLODIPine 10 mg PO DAILY 05/07/16 05/07/16 1 Day Ago History ~05/06/16 10 traMADol ER 100 MG 50 mg PO TID 05/07/16 05/07/16 1 Day Ago History ~05/06/16 50 Ciprofloxacin HCl [Cipro] 500 mg PO BID #28 tablet 09/01/17 Unknown Rx Active Meds: Active Medications Acetaminophen (Acetaminophen 325 Mg Tab) 650 mg PO Q4H PRN PRN Reason: Pain MILD(1-3)/Fever >100.5/ABARCA Amlodipine Besylate (Amlodipine 10 Mg Tab) 10 mg PO DAILY [facility] Last Admin: 08/07/20 08:59 Dose: 10 mg Documented by: Aspirin (Aspirin 325 Mg Tab) 325 mg PO QDAY [facility] Last Admin: 08/07/20 08:59 Dose: 325 mg Documented by: Bisacodyl (Bisacodyl 10 Mg Rect Supp) 10 mg FL QDAY PRN PRN Reason: Constipation Clonidine HCl (Clonidine 0.2 Mg Tab) 0.2 mg PO BID@0800,1700 [facility] Last Admin: 08/07/20 16:19 Dose: 0.2 mg Documented by: Dextrose (Dextrose 50% In Water (25gm) 50 Ml Syringe) 0 ml IV Q30MIN PRN; Pr otocol PRN Reason: Hypoglycemia Enoxaparin Sodium (Enoxaparin 40 Mg/0.4 Ml Inj) 40 mg SUB-Q QDAY@2200 [facility]; Protocol Last Admin: 08/06/20 21:38 Dose: 40 mg Documented by: Gabapentin (Gabapentin 300 Mg Cap) 300 mg PO BID [facility] Last Admin: 08/07/20 08:59 Dose: 300 mg Documented by: Insulin Human Lispro (Insulin Lispro 100 Unit/Ml) 0 unit SUB-Q ACHS [facility]; Protocol Last Admin: 08/07/20 16:53 Dose: Not Given Documented by: Lisinopril (Lisinopril 40 Mg Tab) 40 mg PO QDAY [facility] Last Admin: 08/07/20 09:00 Dose: 40 mg Documented by: Magnesium Hydroxide (Magnesium Hydroxide (Mom) Oral Liqd Udc) 30 ml PO Q4H PRN PRN Reason: Constipation Metoclopramide HCl (Metoclopramide 10 Mg Tab) 10 mg PO Q6H PRN PRN Reason: Nausea And Vomiting Ondansetron HCl (Ondansetron 4 Mg/2 Ml Inj) 4 mg IV Q8H PRN PRN Reason: Nausea And Vomiting Pravastatin Sodium (Pravastatin 80 Mg Tab) 80 mg PO QHS [facility] Last Admin: 08/06/20 21:38 Dose: 80 mg Documented by: Sodium Chloride (Sodium Chloride 0.9% 10 Ml Flush Syringe) 10 ml IV BID [facility] Last Admin: 08/07/20 08:59 Dose: 10 ml Documented by: Sodium Chloride (Sodium Chloride 0.9% 10 Ml Flush Syringe) 10 ml IV PRN PRN PRN Reason: LINE FLUSH Review of Systems All systems: negative Physical Examination Vital Signs Temp Pulse Resp BP Pulse Ox 98.2 F 75 15 162/82 98 08/05/20 08:16 08/05/20 08:16 08/05/20 08:16 08/05/20 08:16 08/05/20 08:16 Narrative exam: Gen-NAD CV-RRR, ILR site well healed Lungs-CTAB Abd-soft/nt/nd Ext-no edema Skin-warm to touch Neuro-alert and oriented Psych-affect appropriate Results 08/05/20 08:27 08/05/20 08:27 Tele - reviewed, sinus rhythm with possible SA exit block, no AF or high grade AV block; nocturnal sinus bradycardia to 30s EKG - sinus rhythm Assessment and Plan #Reported syncope - patient denies #S/p ILR #Troponin elevation - minimal, nonspecific flat trend #Possible remote strokes per CT head #HTN #DM #Lymphoma #Hx of PE 2011 -Unclear history of syncope. -Check echo. -Check carotid US. -Will need ILR interrogation. Patient does not know what company his device is from. -Neurology following, planning for EEG.
[2020-08-07] MEDS: PRAVASTATIN 80 MG TAB PO SCH (23:05)
[2020-08-07] MEDS: ENOXAPARIN 40 MG/0.4 ML INJ SUB-Q SCH (23:06)
--- NOTE | 2020-08-08 07:43 | Vascular Lab Report ---
BILATERAL CAROTID DUPLEX DOPPLER ULTRASOUND HISTORY: stroke COMPARISON: None. TECHNIQUE: Leonard scale, color and spectral Doppler imaging was performed of the extracranial neck annabel aidee. All stenosis measurements were obtained in comparison with the distal internal carotid artery per the SRU consensus criteria. FINDINGS: RIGHT NECK ARTERIES: CCA: Mild noncalcified plaque. ICA: Mild calcified and noncalcified plaque. ECA: No significant abnormality. Vertebral Artery: No significant abnormality. Antegrade flow. LEFT NECK ARTERIES: CCA: Mild to moderate noncalcified plaque. ICA: Minimal noncalcified plaque. ECA: No significant abnormality. Vertebral Artery: No significant abnormality. Antegrade flow. CCA PSV: Right: 104 Left: 141 cm/sec ICA PSV: Right: 80 Left: 69 cm/sec ICA/CCA: Right: 0.8 Left: 0.5 ADDITIONAL FINDINGS: None. IMPRESSION: 1. Mild atherosclerotic plaque in both carotid arteries with less than 50% stenosis by NASCET criteri a. SRU CONSENSUS CRITERIA FOR CLASSIFICATION OF INTERNAL CAROTID ARTERY STENOSIS: note: always attempt to characterize location and type of plaque Normal: Primary Parameters: * ICA PSV: Less than 125 cm/s * Plaque estimate: 0% Additional Parameters: * ICA EDV: Less than 40 cm/s * ICA/CCA ratio: Less than 2 Less than 50% stenosis: Primary Parameters: * ICA PSV: Less than 125 cm/s * Plaque estimate: Less than 50% Additional Parameters: * ICA EDV: Less than 40 cm/s * ICA/CCA ratio: Less than 2 50-69% Stenosis: Primary Parameters: * ICA PSV: 125-230 cm/s * Plaque estimate: Greater than 50% Additional Parameters: * ICA EDV: 40-100 cm/s * ICA/CCA ratio: 2-4 * Flow turbulence Greater than 70% stenosis: Primary Parameters: * ICA PSV: Greater than 230 cm/s * Plaque estimate: Greater than 50% Additional Parameters: * ICA EDV: Greater than 100 cm/s * ICA/CCA ratio: Greater than 4 * Dramatic post-stenotic flow turbulence Subtotal occlusion: Primary Parameters: * ICA PSV: Variable * Plaque estimate: Greater than 50% with narrow lumen Additional Parameters: * ICA EDV: Greater than 0 cm/s * ICA/CCA ratio: Variable * String Sign Total occlusion: Primary Parameters: * ICA PSV: 0 cm/s * Plaque estimate: Greater than 50% Additional Parameters: * ICA EDV: 0 cm/s * ICA/CCA ratio: Less than 1 * Compensatory flow in ECA or contralateral CCA/ICA * String Sign in [id number] ICA with color and spectral Doppler Signer Name: Angelika Blanc MD Signed: 08/08/2020 7:38 AM Workstation Name: [id number]
[2020-08-08] MEDS: cloNIDine 0.2 MG TAB PO SCH ×2 (09:00→17:51)
[2020-08-08] MEDS: GABAPENTIN 300 MG CAP PO SCH ×2 (09:39→22:45)
[2020-08-08] MEDS: ASPIRIN 325 MG TAB PO SCH (09:39)
[2020-08-08] MEDS: LISINOPRIL 40 MG TAB PO SCH (09:39)
[2020-08-08] MEDS: amLODIPine 10 MG TAB PO SCH (09:39)
[2020-08-08] MEDS: INSULIN LISPRO 100 UNIT/ML SUB-Q SCH ×4 (09:39→22:44)
--- NOTE | 2020-08-08 13:28 | Progress Note ---
Assessment and Plan - Patient Problems (1) Syncope Current Visit: Yes Status: Acute Plan to address problem: Patient has recurrent syncope, but has no palpitations or any additional associated cardiac symptoms. He has an in situ cardiac loop recorder, we will identify the vendor and order a device interrogation. Subjective Date of service: 08/08/20 Principal diagnosis: recurrent syncopy ,weakness Interval history: Patient is comfortable, alert and oriented x3, no new cardiac complaints. He presents to the hospital with recurrent syncope, describing multiple episodes of brief syncope over the past several weeks to months. His episodes are not associated with palpitations or chest pain, he instead complains of lightheadedness followed by brief syncope. He also does not report an aura. He has an in situ cardiac loop recorder implanted about a year ago. He cannot recall the name of the vendor, we have requested his outpatient records to identify the vendor so that we can order a device interrogation. Objective Vital Signs Temp Pulse Pulse Resp BP Pulse Ox 08/08/20 12:05 61 08/08/20 11:17 98.2 F 66 18 144/77 98 08/08/20 03:41 97.6 F 73 14 133/73 98 08/07/20 23:23 97.4 F L 51 L 16 125/62 100 08/07/20 23:00 68 08/07/20 20:00 76 16 100 08/07/20 19:15 97.4 F L 76 16 121/79 100 08/07/20 16:19 78 142/82 08/07/20 15:50 97.9 F 73 18 142/82 98 - Physical Examination General: No Apparent Distress HEENT: Positive: PERRL Neck: Positive: neck supple Cardiac: Positive: Reg Rate and Rhythm Lungs: Positive: clear to auscultation Neuro: Positive: Grossly Intact Abdomen: Positive: Soft Skin: Positive: Clear Extremities: Absent: edema
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
[2020-08-08] MEDS: ENOXAPARIN 40 MG/0.4 ML INJ SUB-Q SCH (22:44)
[2020-08-08] MEDS: PRAVASTATIN 80 MG TAB PO SCH (22:45)
[2020-08-09] MEDS: INSULIN LISPRO 100 UNIT/ML SUB-Q SCH (08:32)
[2020-08-09] MEDS: cloNIDine 0.2 MG TAB PO SCH (12:30)
[2020-08-09] MEDS: ASPIRIN 325 MG TAB PO SCH (12:36)
[2020-08-09] MEDS: LISINOPRIL 40 MG TAB PO SCH (12:37)
[2020-08-09] MEDS: GABAPENTIN 300 MG CAP PO SCH (12:37)
[2020-08-09 12:40] VITALS: BP 151/85
--- NOTE | 2020-08-09 12:42 | Electrocardiograph Report ---
[facility] Test Date: 2020-08-05 Test Time: 17:10:22 Pat Name: KACIE SEE Department: Room: A487 1 Gender: M Regional Safety Manager: arias : 1950 Requested By: JENNIFER KELLOGG Order Number: [id number] Reading MD: Truong Young Measurements Intervals Arthur Rate: 64 P: 83 MT: 192 QRS: -19 QRSD: 95 T: 29 QT: 427 QTc: 439 Interpretive Statements Sinus rhythm Probable left atrial enlargement Compared to ECG 08/05/2020 08:21:23 No significant changes Electronically Signed On 08-09-2020 12:42:01 EDT by Truong Young
--- NOTE | 2020-08-09 12:57 | Progress Note ---
Assessment and Plan - Patient Problems (1) Syncope Current Visit: Yes Status: Acute Plan to address problem: Recurrent syncope Normal LVEF by echo this presentation. Negative bubble study. Interrogation of ILR (Provesicatronic) today reports no evidence of ventricular arrhythmias. Syncope is likely vasovagal. Stable cardiac [place] for discharge. As an outpatient, will have the patient follow up with Dr Jacobsen. Subjective Date of service: 08/09/20 Principal diagnosis: recurrent syncopy ,weakness Interval history: Patient is sitting up in bedside chair. No events reported on telemetry. ILR interrogation done today reports no evidence of ventricular arrhythmias. Objective Vital Signs Temp Pulse Resp BP Pulse Ox 08/09/20 12:37 78 151/85 08/09/20 12:30 80 08/09/20 07:45 98.0 F 74 18 141/85 99 08/09/20 03:19 97.5 F L 61 16 138/74 98 08/08/20 23:31 97.5 F L 64 14 145/79 99 08/08/20 19:15 97.9 F 69 16 137/77 99 08/08/20 15:21 98.4 F 80 19 151/82 99 - Physical Examination General: No Apparent Distress HEENT: Positive: PERRL Neck: Positive: neck supple Cardiac: Positive: Reg Rate and Rhythm Lungs: Positive: Decreased Breath Sounds Neuro: Positive: Grossly Intact Abdomen: Positive: Soft Extremities: Absent: edema
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
[2020-08-09] MEDS ORDERED: glipiZIDE 10 MG TAB PO SCH (13:00)
== END 2020-08-09 14:01 | disposition home or self-care (01) ==
LOC: ED 08:06 → OBSVTOIN 21:42 → 4A 21:42 → UNDOADMOB 21:42 → INTOOBSV 21:42 → 4A 22:14 → INTOOBSV 08-09 13:37 → OBSVTOIN 08-09 13:37 → UNDODISOB 08-09 14:01
PROVIDERS: ADMIT Internal Medicine Geriatric Medicine; ATTEND Internal Medicine
DX: I63.9 Cerebral infarction, unspecified (principal); I16.1 Hypertensive emergency; I10 Essential (primary) hypertension; I21.A1 Myocardial infarction type 2; K21.9 Gastro-esophageal reflux disease without esophagitis; G62.9 Polyneuropathy, unspecified; E78.00 Pure hypercholesterolemia, unspecified; E11.9 Type 2 diabetes mellitus without complications; E78.5 Hyperlipidemia, unspecified; R77.8 Other specified abnormalities of plasma proteins; R55 Syncope and collapse; M19.90 Unspecified osteoarthritis, unspecified site; F17.210 Nicotine dependence, cigarettes, uncomplicated; Z88.5 Allergy status to narcotic agent; Z79.899 Other long term (current) drug therapy; Z79.891 Long term (current) use of opiate analgesic; Z79.01 Long term (current) use of anticoagulants; Z86.718 Personal history of other venous thrombosis and embolism; Z86.711 Personal history of pulmonary embolism; Z85.72 Personal history of non-Hodgkin lymphomas; Z79.82 Long term (current) use of aspirin; Z79.4 Long term (current) use of insulin
CPT/HCPCS: 36415; 70450; 71046; 71275; 73552; 73610; 73630; 80053; 80061; 81001; 82962; 83036; 83735; 84484; 85025; 85379; 85610; 85730; 93005; 93306; 93880; 95819; 96372; 96374; 97162; 99291; 99406; A9270; G0378; J0360; J1650; Q9967; 96361; 96365; 96366; 96367; 96368; 96375; 96376; J1815